=== PATIENT | male | born 1955 | race Caucasian/White ===

== ENCOUNTER 2025-05-24 10:19 | Outpatient (CLI) | payer MEDICARE, SELFPAY ==
--- NOTE | 2025-05-24 10:43 | ECG_ITS ---
Test Date: 2025-05-24 10:47:37 Measurements Intervals [place] Rate: 56 P: 53 DE: 251 QRS: -19 QRSD: 102 T: 5 QT: 401 QTc: 388 Interpretive Statements SINUS BRADYCARDIA WITH FIRST DEGREE AV BLOCK INFERIOR MYOCARDIAL INFARCTION , PROBABLY OLD [40+ ms Q WAVE AND/OR ST/T ABNORMALITY IN II/aVF] No previous ECG available for comparison Electronically Signed On 05-24-2025 12:45:46 CDT by Chucho Williamson M.D.
--- OUTSIDE RECORDS SUMMARY | 2025-05-24 10:49 | XMS_ITS | Continuity of Care Document ---
Author Name [facility] Organization [facility] Care Team Providers Care Card Cutter Helper Name Role Phone [facility] Unavailable Unavailable Problems Combined list of problems from Department of Defense and Veterans Affairs facilities. It does not include entries that were removed or entered in error. Problem Status Onset Date Problem Type Date of Resolution Comments Source Allergic rhinitis Active Condition [facility] Anxiety Active Condition [facility] Benign essential hypertension (SNOMED CT 5806918) Active Condition [facility] Benign hypertension (SNOMED CT 18319870) Active Condition [facility] Carpal tunnel syndrome of right wrist Active Condition [facility] Cervical radiculopathy (SNOMED CT 76108601) Active Condition [facility] Cervicalgia (SNOMED CT 74770243) [facility] Chest pain Active Condition [facility] Chronic low back pain Active Condition [facility] Degeneration of cervical intervertebral disc (SNOMED CT 96486633) Active Condition [facility] Degeneration of lumbar or lumbosacral intervertebral disc (ICD-9-CM 722.52) Active Condition [facility] Essential hypertension (SNOMED CT 56823772) Active Condition Oct 16, 2005 Entered By: HAYDEN MCCARTY Comment: under private care [facility] HTN * (ICD-9-CM 401.9) Active Condition [facility] Hyperlipidemia (SNOMED CT 29643191) Active Condition [facility] Intervertebral disc prolapse (SNOMED CT 78172132) Active Condition [facility] Low Back Pain Active Condition Sep Entered By: HAYDEN MCCARTY Comment: recurrant episodes of pain [facility] Entered By: HAYDEN MCCARTY Comment: this is sc [facility] Neck pain (SNOMED CT 61046570) Active Condition [facility] Nonspecific abnormal results of function study of thyroid (ICD-9-CM 794.5) Active Condition [facility] Obstructive sleep apnea Active Condition [facility] Osteoarthritis of knee (SNOMED CT 768916197) Active Condition [facility] Osteoarthrosis involving the knee (ICD-9-CM 715.98) Active Condition [facility] Pain of left hip joint Active Condition [facility] Paronychia of toe (SNOMED CT 898066009) Active Condition [facility] Vitamin D deficiency Active Condition [facility] Vitamin D Deficiency (ICD-9-CM 268.9) Active Condition [facility] Chest Wall Pain (ICD-9-CM 786.52) Inactive Condition 06/01/2015 [facility] Diagnosis: ICD-10-CM I10 Essential (primary) hypertension Active Diagnosis [facility] Diagnosis: ICD-10-CM Z23 Encounter for immunization Active Diagnosis [facility] Medications Combined list of outpatient medications from Department of Defense and Veterans Affairs facilities.Medications provided include 1) outpatient medications from the last 15 months, and 2) patient-reported medications. Medication Details Route Status Patient Instructions Prescription Expires Prescription Number Last Dispense Date Ordering Provider Order Date Order Qty Source ASCORBIC ACID 500MG/NILA HIPS TAB TAKE TWO TABLETS BY MOUTH DAILY ORAL ACTIVE MARI CHA RT F 2014 [facility] CETIRIZINE HCL 10MG TAB TAKE ONE TABLET BY MOUTH ONCE A DAY FOR ALLERGY SYMPTOMS . ORAL 12/24/2024 [id number] SHANIA ESPANA AMCYNTHIAD T 2023 90 [facility] CHOLECALCIF CHRISTINA (LOW DOSE VIT D) - (OTC) TAB TAKE 5000UNIT S BY MOUTH ONCE A DAY ORAL ACTIVE DENIS ODOM SA 2017 [facility] CHOLECALCIF CHRISTINA 25MCG (1,000UNIT) TAB TAKE TWO TABLETS BY MOUTH DAILY ORAL ACTIVE MARI CHA RT F 2014 [facility] CYCLOBENZAP RINE HCL 10MG TAB TAKE ONE TABLET BY MOUTH PRN ORAL ACTIVE DAVID JOSHI 2013 [facility] DICLOFENAC NA 1% GEL,TOP APPLY 4 GM TO AFFECTED AREA(S) FOUR TIMES A DAY NEEDED FOR PAIN/INF LAMMATIO N; NOT MORE THAN 16 GRAMS DAILY TO ANY LOWER EXTREMIT Y JOINT. NOT MORE THAN 8 GRAMS DAILY TO ANY UPPER EXTREMIT Y JOINT. MAX 32GM/DAY OVER ALL JOINTS. (MEASURE DOSE WITH RULER ATTACHED INSIDE BOX) GERARDO Sidhu 11/30/2024 [id number] 4 SHANIA ESPANA T 2023 100 [facility] FISH OIL 1000MG (500MG DHA/EPA) CAP,ORAL TAKE 1 CAPSULE BY MOUTH TWICE A DAY ORAL ACTIVE Remy BARLOW 2012 [facility] HYDROCHLORO THIAZIDE 12.5MG/NESTOR NOPRIL 10MG TAB TAKE ONE TABLET BY MOUTH DAILY ORAL ACTIVE DAVID JOSHI 2013 [facility] HYDROCHLORO THIAZIDE 12.5MG/NESTOR NOPRIL 10MG TAB TAKE ONE TABLET BY MOUTH EVERY DAY ACTIVE BRIANNE MCGEE 2011 [facility] [place] POTASSIUM 100MG TAB TAKE ONE TABLET BY MOUTH ONCE A DAY TO LOWER BLOOD PRESSURE ORAL ACTIVE 12/22/2025 [id number] SHANIA ESPANA T 2024 90 [facility] [place] POTASSIUM 100MG TAB TAKE ONE TABLET BY MOUTH ONCE A DAY TO LOWER BLOOD PRESSURE ORAL DISCONT INUED 11/30/2024 [id number] 4 SHANIA ESPANA T [address] [place] [address] MAGNESIUM OXIDE 400MG TAB TAKE ONE TABLET BY MOUTH DAILY ORAL ACTIVE MARI CHA RT F 2014 [facility] MULTIVITAMI N W/MINERALS (NO VIT K) TAB TAKE BY MOUTH DAILY ORAL ACTIVE MARI CHA RT F 2012 [facility] Allergies, Adverse Reactions, Alerts Combined list of allergies from Department of Defense and Veterans Affairs facilities. It does not include entries that were removed or entered in error. Substance Category Reaction Severity Reaction type Status Date Reported Comments Source LISINOPRIL Propensity to adverse reactions to drug (finding) Cough MODERATE active 3 [facility] MONOSODIUM GLUTAMATE Propensity to adverse reactions to food (finding) Headache, Sneezing active 2 [facility] MONOSODIUM GLUTAMATE Propensity to adverse reactions to food (finding) Headache active 4 [facility] MONOSODIUM GLUTAMATE Propensity to adverse reactions to food (finding) Headache MODERATE active 3 [facility] Immunizations Combined list of available immunizations from the Department of Defense and Veterans Affairs facilities. Immunization Series Date Given Administered By Site Reaction Lot Number CVX Code Drug Spring Coiler Hand Status Comments Source PNEUMOCOCCAL CONJUGATE PCV20, POLYSACCHARID E [id number] CONJUGATE, ADJUVANT, PF 2023 JAN ESPINOZA LEFT DELTO ID [id number] 216 complet ed [facility] TDAP 2023 JAN ESPINOZA RIGHT DELTO ID [id number] 115 complet ed [facility] ZOSTER RECOMBINANT 2 2020 187 complet ed [facility] ZOSTER RECOMBINANT 1 2020 187 complet ed [facility] INFLUENZA, INJECTABLE, QUADRIVALENT, PRESERVATIVE FREE 2019 150 complet ed [facility] INFLUENZA, INJECTABLE, QUADRIVALENT, PRESERVATIVE FREE 2017 150 complet ed [facility] INFLUENZA, INJECTABLE, QUADRIVALENT, PRESERVATIVE FREE 2016 150 complet ed [facility] INFLUENZA, SEASONAL, INJECTABLE, PRESERVATIVE FREE 2014 140 complet ed [facility] INFLUENZA, UNSPECIFIED FORMULATION 2012 88 complet ed [facility] INFLUENZA, UNSPECIFIED FORMULATION 2011 NONE 88 complet ed left deltoid [facility] TDAP 2011 115 complet ed [facility] DTAP, UNSPECIFIED FORMULATION 2011 107 complet ed remote data [facility] TDAP 2011 115 complet ed [facility] TD(ADULT) UNSPECIFIED FORMULATION 2011 139 complet ed [facility] CEMETER Y TDAP 2011 115 complet ed [facility] C[facility] Y INFLUENZA, UNSPECIFIED FORMULATION 2010 88 complet ed [facility] INFLUENZA, UNSPECIFIED FORMULATION 2009 88 complet ed [facility] INFLUEN[facility], UNSPECIFIED FORMULATION 2006 88 complet ed [facility] TD (ADULT), 2 LF TETANUS TOXOID, PRESERVATIVE FREE, ADSORBED 1 2004 09 complet ed HISTORICA L INFORMATI ON - FROM OTHER REGISTRY, [facility] Results Combined list of recent chemistry, hematology and other laboratory results from Department of Defense and Veterans Affairs, ranging from 15 months to all on record, depending upon the facility. Order Name Results Value Reference Range Date Interpretation Specimen Comments Source COMPREHEN SIVE METABOLIC PANEL CREATININE [MASS/VOLUM E] IN SERUM OR PLASMA 1.14 mg/dL 0.7 - 1.3 01/04 Specimen Type: PLASMA Comment: No hemolysis noted. Ordering Provider: BOYD ESPANA Report Released Date/Time: Dec 17, 2024 04:12 PM Reporting Lab: [facility] [address] [place], [place] [phone] Performing Lab: [facility] [address] [place] [address] COMPREHEN SIVE METABOLIC PANEL UREA NITROGEN [MASS/VOLUM E] IN SERUM OR PLASMA 24.1 mg/dL 9.0 - 25.0 01/04 Specimen Type: PLASMA Comment: No hemolysis noted. Ordering Provider: BOYD ESPANA Report Released Date/Time: Dec 17, 2024 04:12 PM Reporting Lab: [facility] [address] [place] [phone] Performing Lab: [facility] [address] [place] [address] COMPREHEN SIVE METABOLIC PANEL GLUCOSE [MASS/VOLUM E] IN SERUM OR PLASMA 97 mg/dL 72 - 99 01/04 Specimen Type: PLASMA Comment: No hemolysis noted. Ordering Provider: BOYD ESPANA Report Released Date/Time: Dec 17, 2024 04:12 PM Reporting Lab: [facility] [address] [place] [address] Performing Lab: [facility] [address] [place] [address] [facility] COMPREHEN SIVE METABOLIC PANEL SODIUM [MOLES/VOLU ME] IN SERUM OR PLASMA 139 meq/L 136 - 145 01/04 Specimen Type: PLASMA Comment: No hemolysis noted. Ordering Provider: BOYD ESPANA Report Released Date/Time: Dec 17, 2024 04:12 PM Reporting Lab: [facility] [address] [place] [address] Performing Lab: [facility] [address] [place] [address] [facility] COMPREHEN SIVE METABOLIC PANEL POTASSIUM [MOLES/VOLU ME] IN SERUM OR PLASMA 4.4 meq/L 3.5 - 5 01/04 Specimen Type: PLASMA Comment: No hemolysis noted. Ordering Provider: BOYD ESPANA Report Released Date/Time: Dec 17, 2024 04:12 PM Reporting Lab: [facility] [address] [place] [address] Performing Lab: [facility] [address] [place] [address] [facility] COMPREHEN SIVE METABOLIC PANEL CHLORIDE [MOLES/VOLU ME] IN SERUM OR PLASMA 105 meq/L 98 - 107 01/04 Specimen Type: PLASMA Comment: No hemolysis noted. Ordering Provider: BOYD ESPANA Report Released Date/Time: Dec 17, 2024 04:12 PM Reporting Lab: [facility] [address] [place] [place] [address] Performing Lab: [facility] [address] [place] [address] [facility] COMPREHEN SIVE METABOLIC PANEL CARBON DIOXIDE, TOTAL [MOLES/VOLU ME] IN SERUM OR PLASMA 22 meq/L 22 - 31 01/04 Specimen Type: PLASMA Comment: No hemolysis noted. Ordering Provider: BOYD ESPANA Report Released Date/Time: Dec 17, 2024 04:12 PM Reporting Lab: [facility] [address] [facility] [address] Performing Lab: [facility] [address] [place] [phone] [facility] COMPREHEN SIVE METABOLIC PANEL CALCIUM [MASS/VOLUM E] IN SERUM OR PLASMA 9.3 mg/dL 8.4 - 10.4 01/04 Specimen Type: PLASMA Comment: No hemolysis noted. Ordering Provider: BOYD ESPANA Report Released Date/Time: Dec 17, 2024 04:12 PM Reporting Lab: [facility] [address] [place] [phone] Performing Lab: [facility] [address] [place] [phone] [facility] COMPREHEN SIVE METABOLIC PANEL PROTEIN [MASS/VOLUM E] IN SERUM OR PLASMA 7.2 g/dL 6 - 8.6 01/04 Specimen Type: PLASMA Comment: No hemolysis noted. Ordering Provider: BOYD ESPANA Report Released Date/Time: Dec 17, 2024 04:12 PM Reporting Lab: [facility] [address] [facility] [address] Performing Lab: [facility] [address] [place] [phone] [facility] COMPREHEN SIVE METABOLIC PANEL ALBUMIN [MASS/VOLUM E] IN SERUM OR PLASMA 4.2 g/dL 3.4 - 5 01/04 Specimen Type: PLASMA Comment: No hemolysis noted. Ordering Provider: BOYD ESPANA Report Released Date/Time: Dec 17, 2024 04:12 PM Reporting Lab: [facility] [address] [facility] [address] Performing Lab: [facility] [address] [facility] [address] [facility] COMPREHEN SIVE METABOLIC PANEL BILIRUBIN.T OTAL [MASS/VOLUM E] IN SERUM OR PLASMA 0.7 mg/dL 0.2 - 1.2 01/04 Specimen Type: PLASMA Comment: No hemolysis noted. Ordering Provider: BOYD ESPANA Report Released Date/Time: Dec 17, 2024 04:12 PM Reporting Lab: [place] [phone] Performing Lab: [place] [id number] COMPREHEN SIVE METABOLIC PANEL ALKALINE PHOSPHATASE [ENZYMATIC ACTIVITY/VO LUME] IN SERUM OR PLASMA 51 U/L 40 - 150 01/04 Specimen Type: PLASMA Comment: No hemolysis noted. Ordering Provider: BOYD ESPANA Report Released Date/Time: Dec 17, 2024 04:12 PM Reporting Lab: [place] [id number] Performing Lab: [place] [id number] [place] [address] COMPREHEN SIVE METABOLIC PANEL ASPARTATE AMINOTRANSF ERASE [ENZYMATIC ACTIVITY/VO LUME] IN SERUM OR PLASMA 52 U/L 5 - 34 01/04 H Specimen Type: PLASMA Comment: No hemolysis noted. Ordering Provider: BOYD ESPANA Report Released Date/Time: Dec 17, 2024 04:12 PM Reporting Lab: [place] [phone] Performing Lab: [address] [phone] [place] [address] COMPREHEN SIVE METABOLIC PANEL ALANINE AMINOTRANSF ERASE [ENZYMATIC ACTIVITY/VO LUME] IN SERUM OR PLASMA 35 U/L 8 - 40 01/04 Specimen Type: PLASMA Comment: No hemolysis noted. Ordering Provider: BOYD ESPANA Report Released Date/Time: Dec 17, 2024 04:12 PM Reporting Lab: [place] [phone] Performing Lab: [address] [place] [address] [facility] COMPREHEN SIVE METABOLIC PANEL GLOMERULAR FILTRATION RATE/1.73 SQ M.PREDICTED [VOLUME RATE/AREA] IN SERUM, PLASMA OR BLOOD BY CREATININE- BASED FORMULA (CKD-EPI 2020) 70.1 60 01/04 Specimen Type: PLASMA Comment: No hemolysis noted. Ordering Provider: BOYD ESPANA Report Released Date/Time: Dec 17, 2024 04:12 PM Reporting Lab: [facility] [address] [place] [phone] Performing Lab: [address] [address] [facility] HGA1C HEMOGLOBIN A1C/HEMOGLO BIN.TOTAL IN BLOOD 6.1 4.0 - 6.0 01/04 H Specimen Type: BLOOD No comment entered. Ordering Provider: BOYD ESPANA Report Released Date/Time: Dec 17, 2024 04:12 PM Reporting Lab: [facility] [address] [place] [phone] Performing Lab: [address] [address] [facility] LIPID PANEL (STL) CHOLESTEROL [MASS/VOLUM E] IN SERUM OR PLASMA 164 mg/dL 0 - 200 01/04 Specimen Type: PLASMA Comment: No hemolysis noted. Ordering Provider: BOYD ESPANA Report Released Date/Time: Dec 17, 2024 04:12 PM Reporting Lab: [facility] [address] [place] [phone] Performing Lab: [address] [phone] [facility] LIPID PANEL (STL) TRIGLYCERID E [MASS/VOLUM E] IN SERUM OR PLASMA 66 mg/dL 0 - 150 01/04 Specimen Type: PLASMA Comment: No hemolysis noted. Ordering Provider: BOYD ESPANA Report Released Date/Time: Dec 17, 2024 04:12 PM Reporting Lab: [facility] [address] [address] Performing Lab: [facility] [address] [place] [phone] [facility] LIPID PANEL (STL) CHOLESTEROL IN LDL [MASS/VOLUM E] IN SERUM OR PLASMA BY CALCULATION 97 mg/dL 01/04 Specimen Type: PLASMA Comment: No hemolysis noted. Ordering Provider: BOYD ESPANA Report Released Date/Time: Dec 17, 2024 04:12 PM Reporting Lab: [facility] [address] [place] [phone] Performing Lab: [place] [phone] [place] [address] LIPID PANEL (L) CHOLESTEROL IN HDL [MASS/VOLUM E] IN SERUM OR PLASMA 54 mg/dL 40 01/04 Specimen Type: PLASMA Comment: No hemolysis noted. Ordering Provider: BOYD ESPANA Report Released Date/Time: Dec 17, 2024 04:12 PM Reporting Lab: [facility] [address] [place] [phone] Performing Lab: [address] [address] [facility] TSH W/ REFLEX FT4 (STL) THYROTROPIN [UNITS/VOLU ME] IN SERUM OR PLASMA 1.065 u[IU]/ mL 0.47 - 5 01/04 Specimen Type: PLASMA No comment entered. Ordering Provider: BOYD ESPANA Report Released Date/Time: Dec 17, 2024 04:12 PM Reporting Lab: [facility] [address] [place] [phone] Performing Lab: [facility] [address] [place], [place] [phone] [facility] URINALYSI S (STL-PB) COLOR OF URINE Light- Yellow 01/04 Specimen Type: URINE No comment entered. Ordering Provider: BOYD ESPANA Report Released Date/Time: Dec 17, 2024 04:12 PM Reporting Lab: [facility] [address] [place] [phone] Performing Lab: [facility] [address] [place], [place] [phone] [place] [address] URINALYSI S (STL-PB) BILIRUBIN.T OTAL [PRESENCE] IN URINE BY TEST STRIP Negati vemg/d L 01/04 Specimen Type: URINE No comment entered. Ordering Provider: BOYD ESPANA Report Released Date/Time: Dec 17, 2024 04:12 PM Reporting Lab: [address] [address] Performing Lab: [address] [phone] [place] [address] URINALYSI S (STL-PB) PH OF URINE BY TEST STRIP 6.5 5.0 - 8.0 01/04 Specimen Type: URINE No comment entered. Ordering Provider: BOYD ESPANA Report Released Date/Time: Dec 17, 2024 04:12 PM Reporting Lab: [address] [address] Performing Lab: [address] [phone] [place] [address] URINALYSI S (STL-PB) LEUKOCYTES [#/AREA] IN URINE SEDIMENT BY MICROSCOPY HIGH POWER FIELD <1/[HP F] 0 - 5 01/04 Specimen Type: URINE No comment entered. Ordering Provider: BOYD ESPANA Report Released Date/Time: Dec 17, 2024 04:12 PM Reporting Lab: [address] [address] Performing Lab: [address] [address] [facility] URINALYSI S (STL-PB) ERYTHROCYTE S [#/VOLUME] IN URINE SEDIMENT BY MICROSCOPY HIGH POWER FIELD 2 /[HPF] 0 - 5 01/04 Specimen Type: URINE No comment entered. Ordering Provider: BOYD ESPANA Report Released Date/Time: Dec 17, 2024 04:12 PM Reporting Lab: [facility] [address] [place] [phone] Performing Lab: [facility] [address] [place] [phone] [facility] URINALYSI S (STL-PB) APPEARANCE OF URINE Clear 01/04 Specimen Type: URINE No comment entered. Ordering Provider: BOYD ESPANA Report Released Date/Time: Dec 17, 2024 04:12 PM Reporting Lab: [address] [address] Performing Lab: [address] [phone] [place] [address] URINALYSI S (STL-PB) NITRITE [PRESENCE] IN URINE BY TEST STRIP Negati vemg/d L 01/04 Specimen Type: URINE No comment entered. Ordering Provider: BOYD ESPANA Report Released Date/Time: Dec 17, 2024 04:12 PM Reporting Lab: [facility] [address] [place] [phone] Performing Lab: [facility] [address] [place] [phone] [facility] URINALYSI S (STL-PB) GLUCOSE [MASS/VOLUM E] IN URINE BY TEST STRIP Normal mg/dL 01/04 Specimen Type: URINE No comment entered. Ordering Provider: BOYD ESPANA Report Released Date/Time: Dec 17, 2024 04:12 PM Reporting Lab: [facility] [address] [place] [phone] Performing Lab: [facility] [address] [place] [phone] [facility] URINALYSI S (STL-PB) PROTEIN [MASS/VOLUM E] IN URINE BY TEST STRIP 20 mg/dL 01/04 H Specimen Type: URINE No comment entered. Ordering Provider: BOYD ESPANA Report Released Date/Time: Dec 17, 2024 04:12 PM Reporting Lab: [facility] [address] [place] [phone] Performing Lab: [facility] [address] [place] [phone] [facility] URINALYSI S (STL-PB) URN.UROBILI NOGEN Normal mg/dL 01/04 Specimen Type: URINE No comment entered. Ordering Provider: BOYD ESPANA Report Released Date/Time: Dec 17, 2024 04:12 PM Reporting Lab: [facility] [address] [place] [phone] Performing Lab: [facility] [address] [place] [phone] [place] [address] URINALYSI S (STL-PB) HEMOGLOBIN [MASS/VOLUM E] IN URINE BY TEST STRIP Negati vemg/d L 01/04 Specimen Type: URINE No comment entered. Ordering Provider: BOYD ESPANA Report Released Date/Time: Dec 17, 2024 04:12 PM Reporting Lab: [facility] [address] [place] [phone] Performing Lab: [address] [address] [facility] URINALYSI S (STL-PB) KETONES [MASS/VOLUM E] IN URINE BY TEST STRIP Negati vemg/d L 01/04 Specimen Type: URINE No comment entered. Ordering Provider: BOYD ESPANA Report Released Date/Time: Dec 17, 2024 04:12 PM Reporting Lab: [facility] [address] [place] [phone] Performing Lab: [facility] [address] [place] [phone] [facility] URINALYSI S (STL-PB) URN.LEUK.ES T. Negati vemg/d L 01/04 Specimen Type: URINE No comment entered. Ordering Provider: BOYD ESPANA Report Released Date/Time: Dec 17, 2024 04:12 PM Reporting Lab: [facility] [address] [place] [phone] Performing Lab: [address] [phone] [place] [address] URINALYSI S (STL-PB) SPECIFIC GRAVITY OF URINE 1.021 01/04 Specimen Type: URINE No comment entered. Ordering Provider: BOYD ESPANA Report Released Date/Time: Dec 17, 2024 04:12 PM Reporting Lab: [address] [address] Performing Lab: [address] [phone] [place] [address] VITAMIN D, 25-HYDROX Y 25-HYDROXYV ITAMIN D3 [MASS/VOLUM E] IN SERUM OR PLASMA 30.3 ng/mL 30 - 96 01/04 Specimen Type: SERUM No comment entered. Ordering Provider: BOYD ESPANA Report Released Date/Time: Dec 17, 2024 04:12 PM Reporting Lab: [address] [phone] Performing Lab: [address] [address] [facility] BASIC METABOLIC PANEL CREATININE [MASS/VOLUM E] IN SERUM OR PLASMA 1.18 mg/dL 0.7 - 1.3 06/26 Specimen Type: PLASMA Comment: No hemolysis noted. Ordering Provider: BOYD ESPANA Report Released Date/Time: Jun 26, 2024 09:32 AM Reporting Lab: [facility] [address] [place] [phone] Performing Lab: [address] [address] [facility] BASIC METABOLIC PANEL UREA NITROGEN [MASS/VOLUM E] IN SERUM OR PLASMA 18.9 mg/dL 9.0 - 25.0 06/26 Specimen Type: PLASMA Comment: No hemolysis noted. Ordering Provider: BOYD ESPANA Report Released Date/Time: Jun 26, 2024 09:32 AM Reporting Lab: [address] [address] Performing Lab: [phone] [place] [address] BASIC METABOLIC PANEL GLUCOSE [MASS/VOLUM E] IN SERUM OR PLASMA 107 mg/dL 72 - 99 06/26 H Specimen Type: PLASMA Comment: No hemolysis noted. Ordering Provider: BOYD ESPANA Report Released Date/Time: Jun 26, 2024 09:32 AM Reporting Lab: [address] [address] Performing Lab: [address] [phone] [place] [address] BASIC METABOLIC PANEL SODIUM [MOLES/VOLU ME] IN SERUM OR PLASMA 137 meq/L 136 - 145 06/26 Specimen Type: PLASMA Comment: No hemolysis noted. Ordering Provider: BOYD ESPANA Report Released Date/Time: Jun 26, 2024 09:32 AM Reporting Lab: [address] [address] Performing Lab: [address] [address] [facility] BASIC METABOLIC PANEL POTASSIUM [MOLES/VOLU ME] IN SERUM OR PLASMA 4.0 meq/L 3.5 - 5 06/26 Specimen Type: PLASMA Comment: No hemolysis noted. Ordering Provider: BOYD ESPANA Report Released Date/Time: Jun 26, 2024 09:32 AM Reporting Lab: [address] [address] Performing Lab: [address] [address] [facility] BASIC METABOLIC PANEL CHLORIDE [MOLES/VOLU ME] IN SERUM OR PLASMA 106 meq/L 98 - 107 06/26 Specimen Type: PLASMA Comment: No hemolysis noted. Ordering Provider: BOYD ESPANA Report Released Date/Time: Jun 26, 2024 09:32 AM Reporting Lab: [address] [address] Performing Lab: [phone] [place] [address] BASIC METABOLIC PANEL CARBON DIOXIDE, TOTAL [MOLES/VOLU ME] IN SERUM OR PLASMA 22 meq/L 22 - 31 06/26 Specimen Type: PLASMA Comment: No hemolysis noted. Ordering Provider: BOYD ESPANA Report Released Date/Time: Jun 26, 2024 09:32 AM Reporting Lab: [address] [address] Performing Lab: [address] [address] [facility] BASIC METABOLIC PANEL CALCIUM [MASS/VOLUM E] IN SERUM OR PLASMA 9.4 mg/dL 8.4 - 10.4 06/26 Specimen Type: PLASMA Comment: No hemolysis noted. Ordering Provider: BOYD ESPANA Report Released Date/Time: Jun 26, 2024 09:32 AM Reporting Lab: [address] [address] Performing Lab: [address] [address] [facility] BASIC METABOLIC PANEL GLOMERULAR FILTRATION RATE/1.73 SQ M.PREDICTED [VOLUME RATE/AREA] IN SERUM, PLASMA OR BLOOD BY CREATININE- BASED FORMULA (CKD-EPI 2020) 67.6 60 06/26 Specimen Type: PLASMA Comment: No hemolysis noted. Ordering Provider: BOYD ESPANA Report Released Date/Time: Jun 26, 2024 09:32 AM Reporting Lab: [address] [address] Performing Lab: [address] [address] [facility] HGA1C HEMOGLOBIN A1C/HEMOGLO BIN.TOTAL IN BLOOD 6.0 4.0 - 6.0 06/26 Specimen Type: BLOOD No comment entered. Ordering Provider: BOYD ESPANA Report Released Date/Time: Jun 26, 2024 09:31 AM Reporting Lab: [address] [address] Performing Lab: [address] [phone] [place] [address] VITAMIN D, 25-HYDROX Y 25-HYDROXYV ITAMIN D3 [MASS/VOLUM E] IN SERUM OR PLASMA 30.7 ng/mL 30 - 96 06/26 Specimen Type: SERUM No comment entered. Ordering Provider: BOYD ESPANA Report Released Date/Time: Jun 26, 2024 09:31 AM Reporting Lab: [address] [address] Performing Lab: [address] [phone] [place] [address] PROST. SPECIFIC AG.(PB-ST L) PROSTATE SPECIFIC AG [MASS/VOLUM E] IN SERUM OR PLASMA 0.454 ng/mL 0 - 4 11/06 Specimen Type: SERUM Comment: The listed sex of this patient may not be a typical indication for this test. Therefore, reference ranges or interpretiv e criteria listed may not be valid. Clinical correlation suggested. Ordering Provider: BOYD ESPANA Report Released Date/Time: Jun 26, 2023 12:07 PM Reporting Lab: [address] [address] Performing Lab: [place] [id number] Vital Signs Combined list of inpatient and outpatient Vital Signs from Department of Defense and Veterans Affairs, ranging from 12 months to all on record, depending upon the facility. Vital Sign Value Date Comments Source SYSTOLIC BLOOD PRESSURE 138 03/01/20 25 09:56:52 [facility] DIASTOLIC BLOOD PRESSURE 69 025 09:56:52 [facility] SYSTOLIC BLOOD PRESSURE 141 06/26/20 24 08:57:01 [facility] DIASTOLIC BLOOD PRESSURE 82 024 08:57:01 [facility] PULSE OXIMETRY 96 06/26/2024 08:57:01 [facility] WEIGHT 253.6 06/26/2024 08:57:01 [facility] BMI 34 kg/m2 06/26/2024 08:57:01 [facility] PAIN 1 06/26/2024 08:57:01 [facility] TEMPERATURE 97.7 06/26/2024 08:57:01 [facility] PULSE 76 06/26/2024 08:57:01 [facility] RESPIRATION 18 06/26/2024 08:57:01 [facility] Encounters Combined list of: 1) Encounters from Department of Veterans Affairs facilities going backup to the last 18 months, not all [place] inpatient encounters are included; 2) Encounters from the Department of [facility] facilities going backup to 280 months. Location Location Details Encounter Type Encounter Number Reason For Visit Attending Provider ADM Date DC Date Status Disposition Source [facility] Outpatient Encounter [id number] CHERIE WALL 11/22 [facility] OFFICE O/P EST MOD 30 MIN [id number] Diagnos is: ICD-10- CM I10 Essenti al (primar y) hyperte nsion JOVICARLOTA MMAD T 11/25 [facility] Outpatient Encounter [id number] NAHTAN CORNEJO 12[facility]12 [facility] En[facility] [id number] NATHAN CORNEJO 12/23 [facility] EST MAY X REQ PHY/QHP [id number] Diagnos is: ICD-10- CM Z23 Encount er for immuniz GABBY Mcmahan EPH T 04/20 [facility] OFFICE O/P EST MOD 30 MIN [id number] Diagnos is: ICD-10- CM I10 Essenti al (primar y) hyperte SHANAI ArceA MMAD T 06/26 [facility] Outpatient Encounter [id number] NATHAN CORNEJO 07/10 [facility] Outpatient Encounter [id number] NATHAN CORNEJO 07/10 [facility] Outpatient Encounter [id number] CARLOTA ESPANA MMAD T 07/18 [facility] Outpatient Encounter [id number] CHERIE WALL 12/17 [facility] OFFICE O/P EST MOD 30 MIN [id number] Diagnos is: ICD-10- CM I10 Essenti al (primar y) hyperte CARLOTA Arce MMAD T 12/21 [facility] Outpatient Encounter [id number] SHANIA ESPANAA MMAD T 01/05 [facility] Outpatient Encounter [id number] CHERIE WALL L 02/23 [facility] OFFICE O/P EST HI 40 MIN [id number] Diagnos is: ICD-10- CM I10 Essenti al (primar y) hyperte nsCARLOTA Higgins MMAD T 03/01 [facility] Outpatient Encounter [id number] CARLOTA ESPANA MMAD T 03/09 [facility] Social History Combined list of available smoking, tobacco, and other social history from Department of Defense and Veterans Affairs facilities. Social History Type Response Date Comment Sour e Tobacco smoking status NHIS [place]-TOBACCO NEVER USED 06/26/2024 [facility] History of tobacco use [place]-TOBACCO NEVER USED 06/26/2023 [facility] History of tobacco use [place]-TOBACCO NEVER USED 04/17/2022 [facility] History of tobacco use [place]-TOBACCO NEVER USED 01/03/2021 [facility] History of tobacco use [place]-TOBACCO NEVER USED 09/15/2018 [facility] History of tobacco use LIFETIME NON-USER OF TOBACCO 04/12/2017 [facility] History of tobacco use LIFETIME NON-USER OF TOBACCO 06/15/2016 [facility] History of tobacco use LIFETIME NON-USER OF TOBACCO 06/01/2015 [facility] History of tobacco use LIFETIME NON-USER OF TOBACCO 04/10/2014 [facility] History of tobacco use TOBACCO LIFETIME NON USER 09/08/2013 [facility] History of tobacco use LIFETIME NON-USER OF TOBACCO 07/17/2013 [facility] History of tobacco use LIFETIME NON-USER OF TOBACCO 10/09/2012 [facility] History of tobacco use LIFETIME NON-USER OF TOBACCO 02/24/2007 [facility] History of tobacco use LIFETIME NON-TOBACCO USER 10/16/2005 [facility] Plan of Care List of future care activities from Department of Veterans Affairs facilities. Additional future care activities may be listed in the Assessment and Plan section. Date/Time Care Activity Care Activity Detail Facili ty 09/01/2025 AMBULATORY - MEDICINE AMBULATORY - MEDICI NE [facility] Advance Directives List of completed, amended, or rescinded Advance Directives on record at Department of [facility] facilities. An actual copy of the Directive is not included. Date Advance Directive Provider Source 06/15/2016 ADVANCE DIRECTIVE DISCUSSION ERIC [facility]
--- OUTSIDE RECORDS SUMMARY | 2025-05-24 10:49 | XMS_ITS | Clinical Summary ---
Author Organization [facility] Address [address] [place] [address] Care Team Providers Care Production Supervisor Trainee Name Role Phone Mayelin Vital MD Primary Care Provider [phone] Julian Rawls MD Unavailable [phone] Source Comments [facility],non-owned Affiliates and Associated Physician Practices is amultiple site organization consisting of ambulatory clinics and hospital sitesin [place], [place], [place] and [place]. This disclosure is being madepursuant to the Care Everywhere program and may not contain all information available regarding this patient. Last updated 18.[facility] Allergies Active Allergy Reactions Criticality Noted Date Comments Lisinopril Cough Medium 08/15/2015 Monosodium Glutamate Headache Low 10/09/2012 Nsaids Other Low 12/24/2022 Stage 1 CKD Medications * Be aware that medications may not be up to date on this document. Alwaysverify current medications with the patient. cetirizine (ZyrTEC) 10 MG tablet 8 Active diclofenac sodium (VOLTAREN) 1 % gel APPLY 4 GM TO AFFECTED AREA(S) FOUR TIMES A DAY NEEDED FOR PAIN/INFLAMMATION ; NOT MORE THAN 16 GRAMS DAILY TO ANY LOWER EXTREMITY JOINT. NOT MORE THAN 8 GRAMS DAILY TO ANY UPPER EXTREMITY JOINT. MAX 32GM/DAY OVER ALL JOINTS. (MEASURE DOSE WITH RULER ATTACHED INSIDE BOX) 0 Active Motley-3 Fatty Acids (FISH OIL) 1000 MG capsule Take 1 (one) capsule by mouth once daily Active losartan (Cozaar) 100 MG tablet 1 (one) tablet 3 Active vitamin D3 (Cholecalcifer ol) (25 MCG) 1000 UNIT capsule Take 1 (one) capsule by mouth once daily Active acetaminophen (Tylenol) 325 MG tablet Take 2 (two) tablets by mouth every 6 hours as needed for Fever or Pain Maximum allowable Acetaminophen amount = 4 Grams (4000 mg) / 24 hours. Active Turmeric (QC TUMERIC COMPLEX PO) Take 1 Dose by mouth once daily Active Collagen-Vitam in C (Collagen Plus Vitamin C) 740-125 MG Take 1 Dose by mouth once daily Active Active Problems Problem Noted Date Diagnosed Date Hallux rigidus of right foot 06/19/2024 Essential (primary) hypertension 06/09/2024 Encounter for general adult medical examination with abnormal findings 06/09/2024 Seasonal allergies 02/04/2023 Primary hypertension 02/04/2023 Skin lesions 02/04/2023 FABBY (obstructive sleep apnea) 02/04/2023 Chronic low back pain with sciatica 02/04/2023 Painful gait 02/04/2023 DDD (degenerative disc disease), lumbar 02/05/20 Anterolisthesis of lumbar spine 02/04/2023 HLD (hyperlipidemia) 02/04/2023 Actinic keratosis 12/28/2021 Multiple benign melanocytic nevi of upper and lower extremities and trunk 12/28/2021 Gagnon angioma 12/28/2021 Solar lentiginosis 12/28/2021 Family History Medical History Relation Name Comments None Known Brother None Known Father None Known Maternal Aunt None Known Maternal Grandfather None Known Maternal Grandmother None Known Maternal Uncle None Known Mother None Known Other None Known Paternal Aunt None Known Paternal Grandfather None Known Paternal Grandmother None Known Paternal Uncle None Known Sister Asthma Neg Hx CVA Neg Hx Cancer - Breast Neg Hx Cancer - Other Neg Hx Cancer - Skin, Melanoma Neg Hx Cancer - Skin, Non Melanoma Neg Hx Eczema Neg Hx Hemophilia Neg Hx Psoriasis Neg Hx Relation Name Status Comments Brother Father Maternal Aunt Maternal Grandfather Maternal Grandmother Maternal Uncle Mother Other Paternal Aunt Paternal Grandfather Paternal Grandmother Paternal Uncle Sister Social History Tobacco Use Types Packs/Day Years Used Date Smoking Tobacco: Never Smokeless Tobacco: Never Alcohol Use Standard Drinks/Week Comments Yes 1 (1 standard drink = 0.6 oz pur e alcohol) 6/8 drinks a year PHQ-2 Answer Date Recorded Patient Health Questionnaire-2 Score 0 02/14/2024 Sex and Gender Information Value Date Recorded Sex Assigned at Male 06/14/2022 12:44 PM CDT Legal Sex 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9 cm (6') 02/12/2025 9:10 AM CDT Body Mass Index 33.77 02/12/2025 9:10 AM CDT Plan of Treatment Upcoming Encounters Date Type Department Care Team (Late st Contact Info) Description 08/20/2025 10:00 AM CDT Office Visit [facility] [address] [facility] [place] [phone] Zoe Gaona, STREET ENGINEER-TOBACCO CUTTER [address] [phone] 08/26/2025 11:20 AM CDT Office Visit [facility] [address] [phone] Williams Urias MD [address] [phone] Health Maintenance Due Date Last Done Comments COLOGUARD (AGES 45-75) - COL ON CA SCREENING 1955 CT COLONOGRAPHY - COLON CA SCREENING 1955 FIT - COLON CA SCREENING 1955 FLEX SIG - COLON CA SCREENING 1955 LIPID TESTING 1955 HEPATITIS C SCREENING 11/08/1974 DTAP/TDAP/TD VACCINES (1 - Tdap) 1975 PNEUMOCOCCAL VACCINE 50+ (1 of 1 - PCV) 2006 ZOSTER VACCINE (1 of 2) 2006 Respiratory Syncytial Virus (RSV) Vaccine Pt: or over 60 yrs (1 - Risk 60-74 years 1-dose series) 2016 COVID-19 VACCINE ( - 2023-2 5 season) 2024 DEPRESSION SCREENING 10/28/2024 01/23/2024, 02/16/2022 MEDICARE AWV CALENDAR YEAR 2024 INFLUENZA VACCINE (#1) 2025 07/29/2023 SCREENING FOR DIABETES 08/03/2025 08/03/2022 COLON MONITORING 06/15/2032 06/15/2022, 06/15/2022 COLONOSCOPY - COLON CA SCREENING 06/15/2032 06/15/2022, 06/15/2022 Colorectal Cancer Screening 06/15/2032 HEPATITIS B VACCINE Aged Out No longe r eligible based on patient's age to complete this topic HIB VACCINE Aged Out No longer eligi ble based on patient's age to complete this topic HPV VACCINE Aged Out No longer eligi ble based on patient's age to complete this topic MENINGOCOCCAL (Group B) VACCINE SHARED DECISION-MAKING Aged Out No longer eligible based on patient's age to complete this topic MENINGOCOCCAL GROUPS A/C/Y/W VACCINE Aged Out No longer eligible b ased on patient's age to complete this topic Procedures Procedure Name Priority Date/Time Associated Diagnosis Comments COMPREHENSIVE METABOLIC PANEL Routine 08/03/2022 9:50 AM CDT Primary hypertension ENDOSCOPY, COLON, SCREENING Routine 06/15/2022 10:03 AM CDT from Last 3 Months or Most Recently Relevant to Health Maintenance Results * (ABNORMAL) COMPREHENSIVE METABOLIC PANEL (08/03/2022 9:50 AM [facility]) BUN 26 7 - 26 mg/dL 08/03/2022 12:20 PM [facility] Creatinine 1.22(H) 0.71 - 1.16 mg/dL 08/03/2022 12:20 PM [facility] Sodium 139 136 - 145 mmol/L 08/03/2022 12:20 PM [facility] Potassium 4.2 3.5 - 4.5 mmol/L 08/03/2022 12:20 PM [facility] Chloride 104 98 - 107 mmol/L 08/03/2022 12:20 PM [facility] CO2 25 22 - 29 mmol/L 08/03/2022 12:20 PM [facility] Glucose 96 70 - 115 mg/dL 08/03/2022 12:20 PM [facility] Calcium 9.7 8.4 - 10.2 mg/dL 08/03/2022 12:20 PM [facility] Protein Total 7.3 6.0 - 8.3 g/dL 08/03/2022 12:20 PM [facility] Albumin 4.2 3.4 - 5.0 g/dL 08/03/2022 12:20 PM [facility] Bilirubin Total 0.4 0.2 - 1.2 mg/dL 08/03/2022 12:20 PM [facility] Alkaline Phosphatase 57 40 - 150 U/L 08/03/2022 12:20 PM [facility] ALT 20 5 - 55 U/L 08/03/2022 12:20 PM [facility] AST 20 5 - 34 U/L 08/03/2022 12:20 PM [facility] Anion Gap 14 8 - 18 08/03/2022 12:20 PM [facility] BUN/Creatinine Ratio 21 7 - 23 08/03/2022 12:20 PM [facility] Osmolality Calculated 293 270 - 300 mOsm/kg 08/03/2022 12:20 PM [facility] Albumin/Globulin Ratio 1.4 1.1 - 2.3 08/03/2022 12:20 PM CDT [facility] eGFR by CKD-EPI 66(L) >=90 mL/min/1.7 3 m2 08/03/2022 12:20 PM CDT [facility] Blood BLOOD SPECIMEN / Unknown Lab Venipuncture / Unknown 08/03/2022 9:50 AM CDT 08/03/2022 11:47 [address] ENGINEER-TOBACCO CUTTER LAB - CHEMISTRY ORDERAB LES Final Result [facility] [address] [place] [address], [facility] [phone] * ENDOSCOPY, COLON, SCREENING (06/15/2022 10:03 AM CDT) Report Endoscopy POC Endoscopy Department Report _ Patient Name: Colleen Kumar Procedure Date: 06/15/2022 10:03 AM Date of : 1955 Classification: Outpatient Gender: Male Ethnicity: Not or Race: White _ Providers: Farhan Christine (Fellow) Referring MD: Procedure: Colonoscopy Indications: Screening for colorectal malignant neoplasm Medications: Monitored Anesthesia Care Patient Profile: This is a 66 year old male. Description of Procedure: After I obtained informed consent, the scope was passed under direct vision. Throughout the procedure, the patient's blood pressure, pulse, and oxygen saturations were monitored continuously. The Colonoscope was introduced through the anus and advanced to the cecum, identified by appendiceal orifice and ileocecal valve. The colonoscopy was performed without difficulty. The patient tolerated the procedure well. The quality of the bowel preparation was evaluated using the BBPS (Mammoth Bowel Preparation Scale) with scores of: Right Colon = 3, Transverse Colon = 3 and Left Colon = 3 (entire mucosa seen well with no residual staining, small fragments of stool or opaque liquid). The total BBPS score equals 9. Scope insertion time was 11 minutes. Scope withdrawal time was 20 minutes. Findings: The perianal and digital rectal examinations were normal. A 2 mm polyp was found in the descending colon. The polyp was sessile. The polyp was removed with a cold snare. Resection and retrieval were complete. The exam was otherwise normal throughout the examined colon. Estimated Blood Loss: Estimated blood loss was minimal. Complications: No immediate complications. Impression: - One 2 mm polyp in the descending colon, removed with a cold snare. Resected and retrieved. - The exam was otherwise normal. Recommendation: - Patient has a contact number available for emergencies. The signs and symptoms of potential delayed complications were discussed with the patient. Return to normal activities tomorrow. Written discharge instructions were provided to the patient. - Resume previous diet. - Repeat colonoscopy in 10 years for surveillance. Attending Participation: I was present and participated during the entire procedure, including non-chisholm portions. Procedure Code(s): --- Professional --- 97813, Colonoscopy, flexible; with removal of tumor(s), polyp(s), or other lesion(s) by snare technique Diagnosis Code(s): --- Professional --- Z12.11, Encounter for screening for malignant neoplasm of colon K63.5, Polyp of colon CPT copyright 2019 [employer]. All rights reserved. The codes documented in this report are preliminary and upon cold meat cook review may be revised to meet current compliance requirements. Dylon Fox, 06/15/2022 10:45:19 AM Note Initiated On: 06/15/2022 10:03 AM Number of Addenda: [id number] [place] [address] PROVATION 06/15/2022 10:0 3 AM CDT Dylon Fox MD GI PROCEDURE ORDERABLES Edited R esult - Final [facility] PROVATION from Last 3 Months or Most Recently Relevant to Health Maintenance Insurance [facility] MANAGED MEDICARE ADV Care Teams Production Supervisor Trainee Relationship Specialty Start Date End Date Mayelin Vital MD [address] [address] PCP - General 11/05/21 Julian Rawls MD [address] [address] 11/05/21
== END 2025-05-24 10:20 | disposition home or self-care (01) ==
PROVIDERS: Visit Provider Podiatrist Foot & Ankle Surgery
DX: Z01.818 Encounter for other preprocedural examination (principal); R00.1 Bradycardia, unspecified; I44.0 Atrioventricular block, first degree
CPT/HCPCS: 93005

== ENCOUNTER → 2025-06-07 16:12 | Outpatient (REF) | payer MEDICARE, SELFPAY ==
--- NOTE | 2025-06-07 16:12 | S_PTH ---
PATIENT: Neal Kumar LOC: [facility] U#:[id number] AGE/SX: 69/M ROOM: RE06/07/[address]: Arlen Harris MD : 1955 BED: DIS: SPEC #: [id number] RECD: 06/08/25 07:15 STATUS: GRIS REKip #: [id number] CHEMO: 06/07/25 16:[address]: Arlen Harris DEPT: [facility] Surgical RECD BY: Leonardo Curry ENTERED: 06/08/25 07:16 SP TYPE: Surgical OTHR DR: UNKNOWN,DOCTOR Tissues: A - Mass Procedures: Hematoxylin and Eosin Stain Gross and Microscopic Level 3
--- OUTSIDE RECORDS SUMMARY | 2025-06-07 16:14 | XMS_ITS | Continuity of Care Document ---
Author Name [facility] Organization [facility] Care Team Providers Care Slot Floor Attendant Name Role Phone [facility] Unavailable Unavailable Problems Combined list of problems from Department of Defense and Veterans Affairs facilities. It does not include entries that were removed or entered in error. Problem Status Onset Date Problem Type Date of Resolution Comments Source Allergic rhinitis Active Condition [facility] Anxiety Active Condition [facility] Benign essential hypertension (SNOMED CT 6075695) Active Condition [facility] Benign hypertension (SNOMED CT 81946807) Active Condition [facility] Carpal tunnel syndrome of right wrist Active Condition [facility] Cervical radiculopathy (SNOMED CT 23134485) Active Condition [facility] Cervicalgia (SNOMED CT 98405808) [facility] Chest pain Active Condition [facility] Chronic low back pain Active Condition [facility] Degeneration of cervical intervertebral disc (SNOMED CT 36545933) Active Condition [facility] Degeneration of lumbar or lumbosacral intervertebral disc (ICD-9-CM 722.52) Active Condition [facility] Essential hypertension (SNOMED CT 23287717) Active Condition Oct 16, 2005 Entered By: HAYDEN MCCARTY Comment: under private care [facility] HTN * (ICD-9-CM 401.9) Active Condition [facility] Hyperlipidemia (SNOMED CT 99601157) Active Condition [facility] Intervertebral disc prolapse (SNOMED CT 80297612) Active Condition [facility] Low Back Pain Active Condition Sep Entered By: HAYDEN MCCARTY Comment: recurrant episodes [facility] Entered By: HAYDEN MCCARTY Comment: this is sc [facility] Neck pain (SNOMED CT 35605926) Active Condition [facility] Nonspecific abnormal results of function study of thyroid (ICD-9-CM 794.5) Active Condition [facility] Obstructive sleep apnea Active Condition [facility] Osteoarthritis of knee (SNOMED CT 803753949) Active Condition [facility] Osteoarthrosis involving the knee (ICD-9-CM 715.98) Active Condition [facility] Pain of left hip joint Active Condition [facility] Paronychia of toe (SNOMED CT 494617895) Active Condition [facility] Vitamin D deficiency Active Condition [facility] Vitamin D Deficiency (ICD-9-CM 268.9) Active Condition [facility] Chest Wall Pain (ICD-9-CM 786.52) Inactive Condition 06/01/2015 [facility] Diagnosis: ICD-10-CM I10 Essential (primary) hypertension Active Diagnosis [facility] Diagnosis: ICD-10-CM Z23 Encounter for immunization Active Diagnosis [facility] Medications Combined list of outpatient medications from [...] ORAL ACTIVE MARI CHA RT F 2014 [facility] CETIRIZINE HCL 10MG TAB TAKE ONE TABLET BY MOUTH ONCE A DAY FOR ALLERGY SYMPTOMS . ORAL 12/24/2024 [id number] SHANIA ESPANA AMCYNTHIAD T 2023 90 [facility] CHOLECALCIF CHRISTINA (LOW DOSE VIT D) - (OTC) TAB TAKE 5000UNIT S BY MOUTH ONCE A DAY ORAL ACTIVE DENIS ODOM SA [address] [facility] CHOLECALCIF CHRISTINA 25MCG (1,000UNIT) TAB TAKE TWO TABLETS BY MOUTH DAILY ORAL ACTIVE MARI CHA RT F 2014 [facility] CYCLOBENZAP RINE HCL 10MG TAB TAKE ONE TABLET BY MOUTH PRN ORAL ACTIVE DAVID JOSHI 2013 [facility] DICLOFENAC NA 1% GEL,TOP APPLY 4 GM TO AFFECTED AREA(S) FOUR TIMES A DAY NEEDED FOR PAIN/INF LAMMATIO N; NOT MORE THAN 16 GRAMS DAILY TO ANY LOWER EXTREMIT Y JOINT. NOT MORE THAN 8 GRAMS DAILY TO ANY UPPER EXTREMIT Y JOINT. MAX 32GM/DAY OVER ALL JOINTS. (MEASURE DOSE WITH RULER ATTACHED INSIDE BOX) GERARDO Sidhu 11/30/2024 [id number] 4 SHANIA ESPANA T 2023 100 [facility] FISH OIL 1000MG (500MG DHA/EPA) CAP,ORAL TAKE 1 CAPSULE BY MOUTH TWICE A DAY ORAL ACTIVE Remy BARLOW 2012 [facility] HYDROCHLORO THIAZIDE 12.5MG/NESTOR NOPRIL 10MG TAB TAKE ONE TABLET BY MOUTH DAILY ORAL ACTIVE DAVID JOSHI 2013 [facility] HYDROCHLORO THIAZIDE 12.5MG/NESTOR NOPRIL 10MG TAB TAKE ONE TABLET BY MOUTH EVERY DAY ACTIVE BRIANNE MCGEE 2011 [facility] [place] POTASSIUM 100MG TAB TAKE ONE TABLET BY MOUTH ONCE A DAY TO LOWER BLOOD PRESSURE ORAL ACTIVE 12/22/2025 [id number] 5 SHANIA ESPANA T 2024 90 [facility] [place] POTASSIUM 100MG TAB TAKE ONE TABLET BY MOUTH ONCE A DAY TO LOWER BLOOD PRESSURE ORAL DISCONT INUED 11/30/2024 [id number] 4 SHANIA ESPANA T [address] [place] [address] MAGNESIUM OXIDE 400MG TAB TAKE ONE TABLET BY MOUTH DAILY ORAL ACTIVE MARI CHA RT F 2014 [facility] MULTIVITAMI N W/MINERALS (NO VIT K) TAB TAKE BY MOUTH DAILY ORAL ACTIVE MARI CHA RT F 2012 [facility] Allergies, Adverse Reactions, Alerts Combined list of allergies from Department of Defense and Veterans Affairs facilities. It does not include entries that were removed or entered in error. Substance Category Reaction Severity Reaction type Status Date Reported Comments Source LISINOPRIL Propensity to adverse reactions to drug (finding) Cough MODERATE active 3 [facility] MONOSODIUM GLUTAMATE Propensity to adverse reactions to food (finding) Headache, Sneezing active 2 [facility] MONOSODIUM GLUTAMATE Propensity to adverse reactions to food (finding) Headache active 4 [facility] MONOSODIUM GLUTAMATE Propensity to adverse reactions to food (finding) Headache MODERATE active 3 [facility] Immunizations Combined list of available immunizations from the Department of Defense and Veterans Affairs facilities. Immunization Series Date Given Administered By Site Reaction Lot Number CVX Code Drug Lot Porter Status Comments Source PNEUMOCOCCAL CONJUGATE PCV20, POLYSACCHARID E [id number] CONJUGATE, ADJUVANT, PF 2023 JAN ESPINOZA LEFT DELTO ID [id number] 216 complet ed [facility] TDAP 2023 JAN ESPINOZA RIGHT DELTO ID [id number] 115 complet ed [facility] ZOSTER RECOMBINANT 2 2020 187 complet ed [facility] ZOSTER RECOMBINANT 1 2020 187 complet ed [facility] INFLUENZA, INJECTABLE, QUADRIVALENT, PRESERVATIVE FREE 2019 150 complet ed [facility] INFLUENZA, INJECTABLE, QUADRIVALENT, PRESERVATIVE FREE 2017 150 complet ed [facility] INFLUENZA, INJECTABLE, QUADRIVALENT, PRESERVATIVE FREE 2016 150 complet ed [facility] INFLUENZA, SEASONAL, INJECTABLE, PRESERVATIVE FREE 2014 140 complet ed [facility] INFLUENZA, UNSPECIFIED FORMULATION 2012 88 complet ed [facility] INFLUENZA, UNSPECIFIED FORMULATION 2011 NONE 88 complet ed left deltoid [facility] TDAP 2011 115 complet ed [facility] DTAP, UNSPECIFIED FORMULATION 2011 107 complet ed remote data DELAWAR E TDAP 2011 115 complet ed [facility] TD(ADULT) UNSPECIFIED FORMULATION 2011 139 complet ed [facility] CEMETER Y TDAP 2011 115 complet ed JAM[facility] CEMETER Y INFLUENZA, UNSPECIFIED FORMULATION 2010 88 complet ed [facility] INFLUENZA, UNSPECIFIED FORMULATION 2009 88 complet ed [facility] INFLUENZA, UNSPECIFIED FORMULATION 2006 88 complet ed [facility] TD (ADULT), 2 LF TETANUS TOXOID, PRESERVATIVE FREE, ADSORBED 1 2004 09 complet ed HISTORICA L INFORMATI ON - FROM OTHER REGISTRY, [facility] Results Combined list of recent [...] Dec 17, 2024 04:12 PM Reporting Lab: [facility] [address] [place], [place] [phone] Performing Lab: [facility] [address] [place] [address] COMPREHEN SIVE METABOLIC PANEL UREA NITROGEN [MASS/VOLUM E] IN SERUM OR PLASMA 24.1 mg/dL 9.0 - 25.0 01/04 Specimen Type: PLASMA Comment: No hemolysis noted. Ordering Provider: BOYD ESPANA Report Released Date/Time: Dec 17, 2024 04:12 PM Reporting Lab: [facility] [address] [place] [phone] Performing Lab: [facility] [address] [place] [address] COMPREHEN SIVE METABOLIC PANEL GLUCOSE [MASS/VOLUM E] IN SERUM OR PLASMA 97 mg/dL 72 - 99 01/04 Specimen Type: PLASMA Comment: No hemolysis noted. Ordering Provider: BOYD ESPANA Report Released Date/Time: Dec 17, 2024 04:12 PM Reporting Lab: [facility] [address] [facility] [phone] Performing Lab: [facility] [address] [facility] [phone] [facility] COMPREHEN SIVE METABOLIC PANEL SODIUM [MOLES/VOLU ME] IN SERUM OR PLASMA 139 meq/L 136 - 145 01/04 Specimen Type: PLASMA Comment: No hemolysis noted. Ordering Provider: BOYD ESPANA Report Released Date/Time: Dec 17, 2024 04:12 PM Reporting Lab: [facility] [address] [facility] [phone] Performing Lab: [facility] [address] [facility] [phone] [facility] COMPREHEN SIVE METABOLIC PANEL POTASSIUM [MOLES/VOLU ME] IN SERUM OR PLASMA 4.4 meq/L 3.5 - 5 01/04 Specimen Type: PLASMA Comment: No hemolysis noted. Ordering Provider: BOYD ESPANA Report Released Date/Time: Dec 17, 2024 04:12 PM Reporting Lab: [facility] [address] [facility] [phone] Performing Lab: [facility] [address] [facility] [phone] [facility] COMPREHEN SIVE METABOLIC PANEL CHLORIDE [MOLES/VOLU ME] IN SERUM OR PLASMA 105 meq/L 98 - 107 01/04 Specimen Type: PLASMA Comment: No hemolysis noted. Ordering Provider: BOYD ESPANA Report Released Date/Time: Dec 17, 2024 04:12 PM Reporting Lab: [facility] [address] [facility] [phone] Performing Lab: [facility] [address] [facility] [phone] [facility] COMPREHEN SIVE METABOLIC PANEL CARBON DIOXIDE, TOTAL [MOLES/VOLU ME] IN SERUM OR PLASMA 22 meq/L 22 - 31 01/04 Specimen Type: PLASMA Comment: No hemolysis noted. Ordering Provider: BOYD ESPANA Report Released Date/Time: Dec 17, 2024 04:12 PM Reporting Lab: [facility] [address] [facility] [phone] Performing Lab: [facility] [address] [place] [phone] [facility] COMPREHEN SIVE METABOLIC PANEL CALCIUM [MASS/VOLUM E] IN SERUM OR PLASMA 9.3 mg/dL 8.4 - 10.4 01/04 Specimen Type: PLASMA Comment: No hemolysis noted. Ordering Provider: BOYD ESPANA Report Released Date/Time: Dec 17, 2024 04:12 PM Reporting Lab: [facility] [address] [place] [phone] Performing Lab: [facility] [address] [place] [phone] [facility] COMPREHEN SIVE METABOLIC PANEL PROTEIN [MASS/VOLUM E] IN SERUM OR PLASMA 7.2 g/dL 6 - 8.6 01/04 Specimen Type: PLASMA Comment: No hemolysis noted. Ordering Provider: BOYD ESPANA Report Released Date/Time: Dec 17, 2024 04:12 PM Reporting Lab: [facility] [address] [facility] [phone] Performing Lab: [facility] [address] [place] [phone] [facility] COMPREHEN SIVE METABOLIC PANEL ALBUMIN [MASS/VOLUM E] IN SERUM OR PLASMA 4.2 g/dL 3.4 - 5 01/04 Specimen Type: PLASMA Comment: No hemolysis noted. Ordering Provider: BOYD ESPANA Report Released Date/Time: Dec 17, 2024 04:12 PM Reporting Lab: [facility] [address] [facility] [phone] Performing Lab: [facility] [address] [facility] [phone] [facility] COMPREHEN SIVE METABOLIC PANEL BILIRUBIN.T OTAL [MASS/VOLUM E] IN SERUM OR PLASMA 0.7 mg/dL 0.2 - 1.2 01/04 Specimen Type: PLASMA Comment: No hemolysis noted. Ordering Provider: BOYD ESPANA Report Released Date/Time: Dec 17, 2024 04:12 PM Reporting Lab: [place] [phone] Performing Lab: [place] [phone] COMPREHEN SIVE METABOLIC PANEL ALKALINE PHOSPHATASE [ENZYMATIC ACTIVITY/VO LUME] IN SERUM OR PLASMA 51 U/L 40 - 150 01/04 Specimen Type: PLASMA Comment: No hemolysis noted. Ordering Provider: BOYD ESPANA Report Released Date/Time: Dec 17, 2024 04:12 PM Reporting Lab: [place] [address] Performing Lab: [place] [phone] [place] [address] COMPREHEN SIVE METABOLIC PANEL ASPARTATE AMINOTRANSF ERASE [ENZYMATIC ACTIVITY/VO LUME] IN SERUM OR PLASMA 52 U/L 5 - 34 01/04 H Specimen Type: PLASMA Comment: No hemolysis noted. Ordering Provider: BOYD ESPANA Report Released Date/Time: Dec 17, 2024 04:12 PM Reporting Lab: [place] [phone] Performing Lab: [address] [phone] [place] [address] COMPREHEN SIVE METABOLIC PANEL ALANINE AMINOTRANSF ERASE [ENZYMATIC ACTIVITY/VO LUME] IN SERUM OR PLASMA 35 U/L 8 - 40 01/04 Specimen Type: PLASMA Comment: No hemolysis noted. Ordering Provider: BOYD ESPANA Report Released Date/Time: Dec 17, 2024 04:12 PM Reporting Lab: [place] [phone] Performing Lab: [address] [place] [address] [facility] COMPREHEN SIVE METABOLIC PANEL GLOMERULAR FILTRATION RATE/1.73 SQ M.PREDICTED [VOLUME RATE/AREA] IN SERUM, PLASMA OR BLOOD BY CREATININE- BASED FORMULA (CKD-EPI 2020) 70.1 60 01/04 Specimen Type: PLASMA Comment: No hemolysis noted. Ordering Provider: BOYD ESPANA Report Released Date/Time: Dec 17, 2024 04:12 PM Reporting Lab: [facility] [address] [place] [phone] Performing Lab: [address] [address] [facility] HGA1C HEMOGLOBIN A1C/HEMOGLO BIN.TOTAL IN BLOOD 6.1 4.0 - 6.0 01/04 H Specimen Type: BLOOD No comment entered. Ordering Provider: BOYD ESPANA Report Released Date/Time: Dec 17, 2024 04:12 PM Reporting Lab: [facility] [address] [place] [phone] Performing Lab: [address] [address] [facility] LIPID PANEL (STL) CHOLESTEROL [MASS/VOLUM E] IN SERUM OR PLASMA 164 mg/dL 0 - 200 01/04 Specimen Type: PLASMA Comment: No hemolysis noted. Ordering Provider: BOYD ESPANA Report Released Date/Time: Dec 17, 2024 04:12 PM Reporting Lab: [facility] [address] [place] [phone] Performing Lab: [address] [address] [facility] LIPID PANEL (STL) TRIGLYCERID E [MASS/VOLUM E] IN SERUM OR PLASMA 66 mg/dL 0 - 150 01/04 Specimen Type: PLASMA Comment: No hemolysis noted. Ordering Provider: BOYD ESPANA Report Released Date/Time: Dec 17, 2024 04:12 PM Reporting Lab: [facility] [address] [facility] [phone] Performing Lab: [facility] [address] [place] [phone] [facility] LIPID PANEL (STL) CHOLESTEROL IN LDL [MASS/VOLUM E] IN SERUM OR PLASMA BY CALCULATION 97 mg/dL 01/04 Specimen Type: PLASMA Comment: No hemolysis noted. Ordering Provider: BOYD ESPANA Report Released Date/Time: Dec 17, 2024 04:12 PM Reporting Lab: [facility] [address] [place] [phone] Performing Lab: [place] [phone] [place] [address] LIPID PANEL (L) CHOLESTEROL IN HDL [MASS/VOLUM E] IN SERUM OR PLASMA 54 mg/dL 40 01/04 Specimen Type: PLASMA Comment: No hemolysis noted. Ordering Provider: BOYD ESPANA Report Released Date/Time: Dec 17, 2024 04:12 PM Reporting Lab: [facility] [address] [place] [phone] Performing Lab: [address] [address] [facility] TSH W/ REFLEX FT4 (STL) THYROTROPIN [UNITS/VOLU ME] IN SERUM OR PLASMA 1.065 u[IU]/ mL 0.47 - 5 01/04 Specimen Type: PLASMA No comment entered. Ordering Provider: BOYD ESPANA Report Released Date/Time: Dec 17, 2024 04:12 PM Reporting Lab: [facility] [address] [place] [phone] Performing Lab: [facility] [address] [place], [place] [phone] [facility] URINALYSI S (STL-PB) COLOR OF URINE Light- Yellow 01/04 Specimen Type: URINE No comment entered. Ordering Provider: BOYD ESPANA Report Released Date/Time: Dec 17, 2024 04:12 PM Reporting Lab: [facility] [address] [place] [phone] Performing Lab: [facility] [address] [place], [place] [phone] [place] [address] URINALYSI S (STL-PB) BILIRUBIN.T OTAL [PRESENCE] IN URINE BY TEST STRIP Negati vemg/d L 01/04 Specimen Type: URINE No comment entered. Ordering Provider: BOYD ESPANA Report Released Date/Time: Dec 17, 2024 04:12 PM Reporting Lab: [address] [address] Performing Lab: [address] [phone] [place] [address] URINALYSI S (STL-PB) PH OF URINE BY TEST STRIP 6.5 5.0 - 8.0 01/04 Specimen Type: URINE No comment entered. Ordering Provider: BOYD ESPANA Report Released Date/Time: Dec 17, 2024 04:12 PM Reporting Lab: [address] [phone] Performing Lab: [address] [phone] [place] [address] URINALYSI S (STL-PB) LEUKOCYTES [#/AREA] IN URINE SEDIMENT BY MICROSCOPY HIGH POWER FIELD <1/[HP F] 0 - 5 01/04 Specimen Type: URINE No comment entered. Ordering Provider: BOYD ESPANA Report Released Date/Time: Dec 17, 2024 04:12 PM Reporting Lab: [address] [address] Performing Lab: [address] [address] [facility] URINALYSI S (STL-PB) ERYTHROCYTE S [#/VOLUME] IN URINE SEDIMENT BY MICROSCOPY HIGH POWER FIELD 2 /[HPF] 0 - 5 01/04 Specimen Type: URINE No comment entered. Ordering Provider: BOYD ESPANA Report Released Date/Time: Dec 17, 2024 04:12 PM Reporting Lab: [facility] [address] [place] [phone] Performing Lab: [facility] [address] [place] [phone] [facility] URINALYSI S (STL-PB) APPEARANCE OF URINE Clear 01/04 Specimen Type: URINE No comment entered. Ordering Provider: BOYD ESPANA Report Released Date/Time: Dec 17, 2024 04:12 PM Reporting Lab: [address] [address] Performing Lab: [address] [phone] [place] [address] URINALYSI S (STL-PB) NITRITE [PRESENCE] IN URINE BY TEST STRIP Negati vemg/d L 01/04 Specimen Type: URINE No comment entered. Ordering Provider: BOYD ESPANA Report Released Date/Time: Dec 17, 2024 04:12 PM Reporting Lab: [facility] [address] [place] [phone] Performing Lab: [facility] [address] [place] [phone] [facility] URINALYSI S (STL-PB) GLUCOSE [MASS/VOLUM E] IN URINE BY TEST STRIP Normal mg/dL 01/04 Specimen Type: URINE No comment entered. Ordering Provider: BOYD ESPANA Report Released Date/Time: Dec 17, 2024 04:12 PM Reporting Lab: [facility] [address] [place] [phone] Performing Lab: [facility] [address] [place] [phone] [facility] URINALYSI S (STL-PB) PROTEIN [MASS/VOLUM E] IN URINE BY TEST STRIP 20 mg/dL 01/04 H Specimen Type: URINE No comment entered. Ordering Provider: BOYD ESPANA Report Released Date/Time: Dec 17, 2024 04:12 PM Reporting Lab: [facility] [address] [place] [phone] Performing Lab: [facility] [address] [place] [phone] [facility] URINALYSI S (STL-PB) URN.UROBILI NOGEN Normal mg/dL 01/04 Specimen Type: URINE No comment entered. Ordering Provider: BOYD ESPANA Report Released Date/Time: Dec 17, 2024 04:12 PM Reporting Lab: [facility] [address] [place] [phone] Performing Lab: [facility] [address] [place] [phone] [place] [address] URINALYSI S (STL-PB) HEMOGLOBIN [MASS/VOLUM E] IN URINE BY TEST STRIP Negati vemg/d L 01/04 Specimen Type: URINE No comment entered. Ordering Provider: BOYD ESPANA Report Released Date/Time: Dec 17, 2024 04:12 PM Reporting Lab: [facility] [address] [place] [phone] Performing Lab: [address] [phone] [facility] URINALYSI S (STL-PB) KETONES [MASS/VOLUM E] IN URINE BY TEST STRIP Negati vemg/d L 01/04 Specimen Type: URINE No comment entered. Ordering Provider: BOYD ESPANA Report Released Date/Time: Dec 17, 2024 04:12 PM Reporting Lab: [facility] [address] [place] [phone] Performing Lab: [facility] [address] [place] [phone] [facility] URINALYSI S (STL-PB) [email or web address] T. Negati vemg/d L 01/04 Specimen Type: URINE No comment entered. Ordering Provider: BOYD ESPANA Report Released Date/Time: Dec 17, 2024 04:12 PM Reporting Lab: [facility] [address] [place] [phone] Performing Lab: [address] [id number] [place] [address] URINALYSI S (STL-PB) SPECIFIC GRAVITY OF URINE 1.021 01/04 Specimen Type: URINE No comment entered. Ordering Provider: BOYD ESPANA Report Released Date/Time: Dec 17, 2024 04:12 PM Reporting Lab: [address] [phone] Performing Lab: [address] [phone] [place] [address] VITAMIN D, 25-HYDROX Y 25-HYDROXYV ITAMIN D3 [MASS/VOLUM E] IN SERUM OR PLASMA 30.3 ng/mL 30 - 96 01/04 Specimen Type: SERUM No comment entered. Ordering Provider: BOYD ESPANA Report Released Date/Time: Dec 17, 2024 04:12 PM Reporting Lab: [address] [phone] Performing Lab: [address] [phone] [facility] BASIC METABOLIC PANEL CREATININE [MASS/VOLUM E] IN SERUM OR PLASMA 1.18 mg/dL 0.7 - 1.3 06/26 Specimen Type: PLASMA Comment: No hemolysis noted. Ordering Provider: BOYD ESPANA Report Released Date/Time: Jun 26, 2024 09:32 AM Reporting Lab: [facility] [address] [place] [address] Performing Lab: [address] [address] [facility] BASIC METABOLIC PANEL UREA NITROGEN [MASS/VOLUM E] IN SERUM OR PLASMA 18.9 mg/dL 9.0 - 25.0 06/26 Specimen Type: PLASMA Comment: No hemolysis noted. Ordering Provider: BOYD ESPANA Report Released Date/Time: Jun 26, 2024 09:32 AM Reporting Lab: [address] [address] Performing Lab: [address] [phone] [place] [address] BASIC METABOLIC PANEL GLUCOSE [MASS/VOLUM E] IN SERUM OR PLASMA 107 mg/dL 72 - 99 06/26 H Specimen Type: PLASMA Comment: No hemolysis noted. Ordering Provider: BOYD ESPANA Report Released Date/Time: Jun 26, 2024 09:32 AM Reporting Lab: [address] [address] Performing Lab: [address] [phone] [place] [address] BASIC METABOLIC PANEL SODIUM [MOLES/VOLU ME] IN SERUM OR PLASMA 137 meq/L 136 - 145 06/26 Specimen Type: PLASMA Comment: No hemolysis noted. Ordering Provider: BOYD ESPANA Report Released Date/Time: Jun 26, 2024 09:32 AM Reporting Lab: [address] [address] Performing Lab: [address] [address] [facility] BASIC METABOLIC PANEL POTASSIUM [MOLES/VOLU ME] IN SERUM OR PLASMA 4.0 meq/L 3.5 - 5 06/26 Specimen Type: PLASMA Comment: No hemolysis noted. Ordering Provider: BOYD ESPANA Report Released Date/Time: Jun 26, 2024 09:32 AM Reporting Lab: [address] [address] Performing Lab: [address] [address] [facility] BASIC METABOLIC PANEL CHLORIDE [MOLES/VOLU ME] IN SERUM OR PLASMA 106 meq/L 98 - 107 06/26 Specimen Type: PLASMA Comment: No hemolysis noted. Ordering Provider: BOYD ESPANA Report Released Date/Time: Jun 26, 2024 09:32 AM Reporting Lab: [address] [address] Performing Lab: [address] [phone] [place] [address] BASIC METABOLIC PANEL CARBON DIOXIDE, TOTAL [MOLES/VOLU ME] IN SERUM OR PLASMA 22 meq/L 22 - 31 06/26 Specimen Type: PLASMA Comment: No hemolysis noted. Ordering Provider: BOYD ESPANA Report Released Date/Time: Jun 26, 2024 09:32 AM Reporting Lab: [address] [address] Performing Lab: [address] [address] [facility] BASIC METABOLIC PANEL CALCIUM [MASS/VOLUM E] IN SERUM OR PLASMA 9.4 mg/dL 8.4 - 10.4 06/26 Specimen Type: PLASMA Comment: No hemolysis noted. Ordering Provider: BOYD ESPANA Report Released Date/Time: Jun 26, 2024 09:32 AM Reporting Lab: [address] [address] Performing Lab: [address] [address] [facility] BASIC METABOLIC PANEL GLOMERULAR FILTRATION RATE/1.73 SQ M.PREDICTED [VOLUME RATE/AREA] IN SERUM, PLASMA OR BLOOD BY CREATININE- BASED FORMULA (CKD-EPI 2020) 67.6 60 06/26 Specimen Type: PLASMA Comment: No hemolysis noted. Ordering Provider: BOYD ESPANA Report Released Date/Time: Jun 26, 2024 09:32 AM Reporting Lab: [address] [address] Performing Lab: [address] [address] [facility] HGA1C HEMOGLOBIN A1C/HEMOGLO BIN.TOTAL IN BLOOD 6.0 4.0 - 6.0 06/26 Specimen Type: BLOOD No comment entered. Ordering Provider: BOYD ESPANA Report Released Date/Time: Jun 26, 2024 09:31 AM Reporting Lab: [address] [address] Performing Lab: [address] [phone] [place] [address] VITAMIN D, 25-HYDROX Y 25-HYDROXYV ITAMIN D3 [MASS/VOLUM E] IN SERUM OR PLASMA 30.7 ng/mL 30 - 96 06/26 Specimen Type: SERUM No comment entered. Ordering Provider: BOYD ESPANA Report Released Date/Time: Jun 26, 2024 09:31 AM Reporting Lab: [address] [address] Performing Lab: [address] [phone] [place] [address] PROST. SPECIFIC AG.(PB-ST L) PROSTATE SPECIFIC AG [...] Jun 26, 2023 12:07 PM Reporting Lab: [address] [address] Performing Lab: [place] [id number] Vital Signs Combined list of inpatient and outpatient Vital Signs from Department of Defense and Veterans Affairs, ranging from 12 months to all on record, depending upon the facility. Vital Sign Value Date Comments Source SYSTOLIC BLOOD PRESSURE 138 03/01/20 25 09:56:52 [facility] DIASTOLIC BLOOD PRESSURE 69 025 09:56:52 [facility] SYSTOLIC BLOOD PRESSURE 141 06/26/20 24 08:57:01 [facility] DIASTOLIC BLOOD PRESSURE 82 024 08:57:01 [facility] PULSE OXIMETRY 96 06/26/2024 08:57:01 [facility] WEIGHT 253.6 06/26/2024 08:57:01 [facility] BMI 34 kg/m2 06/26/2024 08:57:01 [facility] PAIN 1 06/26/2024 08:57:01 [facility] TEMPERATURE 97.7 06/26/2024 08:57:01 [facility] PULSE 76 06/26/2024 08:57:01 [facility] RESPIRATION 18 06/26/2024 08:57:01 [facility] Encounters Combined list of: 1) Encounters from Department of Veterans Affairs facilities going backup to the last 18 months, not all [place] inpatient encounters are included; 2) Encounters from the Department of [facility] facilities going backup to 280 months. Location Location Details Encounter Type Encounter Number Reason For Visit Attending Provider ADM Date DC Date Status Disposition Source [facility] Outpatient Encounter [id number] CHERIE WALL 11/22 [facility] OFFICE O/P EST MOD 30 MIN [id number] Diagnos is: ICD-10- CM I10 Essenti al (primar y) hyperte nsion JOVICARLOTA MMAD T 11/25 [facility] Outpatient Encounter [id number] NATHAN CORNEJO 12/12 [facility] Encounter [id number] NATHAN CORNEJO 12/23 [facility] MAY X REQ PHY/QHP [id number] Diagnos is: ICD-10- CM Z23 Encount er for immuniz GABBY Mcmahan EPH T 04/20 [facility] OFFICE O/P EST MOD 30 MIN [id number] Diagnos is: ICD-10- CM I10 Essenti al (primar y) hyperte SHANIA ArceA MMAD T 06/26 [facility] Outpatient Encounter [id number] NATHAN CORNEJO 07/10 [facility] Outpatient Encounter [id number] NATHAN CORNEJO 07/10 [facility] Outpatient Encounter [id number] CARLOTA ESPANA MMAD T 07/18 [facility] Outpatient Encounter [id number] CHERIE WALL 12/17 [facility] OFFICE O/P EST MOD 30 MIN [id number] Diagnos is: ICD-10- CM I10 Essenti al (primar y) hyperte CARLOTA Arce MMAD T 12/21 [facility] Outpatient Encounter [id number] SHANIA ESPANAA MMAD T 01/05 [facility] Outpatient Encounter [id number] CHERIE WALL L 02/23 [facility] OFFICE O/P EST HI 40 MIN [id number] Diagnos is: ICD-10- CM I10 Essenti al (primar y) hyperte nsCARLOTA Higgins MMAD T 03/01 [facility] Outpatient Encounter [id number] CARLOTA ESPANA MMAD T 03/09 [facility] Social History Combined list of available smoking, tobacco, and other social history from Department of Defense and Veterans Affairs facilities. Social History Type Response Date Comment Sour e Tobacco smoking status NHIS NC-TOBACCO NEVER USED 06/26/2024 [facility] History of tobacco use NC-TOBACCO NEVER USED 06/26/2023 [facility] History of tobacco use NC-TOBACCO NEVER USED 04/17/2022 [facility] History of tobacco use NC-TOBACCO NEVER USED 01/03/2021 [facility] History of tobacco use NC-TOBACCO NEVER USED 09/15/[address] [facility] History of tobacco use LIFETIME NON-USER OF TOBACCO 04/12/2017 [facility] History of tobacco use LIFETIME NON-USER OF TOBACCO 06/15/2016 [facility] History of tobacco use LIFETIME NON-USER OF TOBACCO 06/01/2015 [facility] History of tobacco use LIFETIME NON-USER OF TOBACCO 04/10/2014 [facility] History of tobacco use TOBACCO LIFETIME NON USER 09/08/2013 [facility] History of tobacco use LIFETIME NON-USER OF TOBACCO 07/17/2013 [facility] History of tobacco use LIFETIME NON-USER OF TOBACCO 10/09/2012 [facility] History of tobacco use LIFETIME NON-USER OF TOBACCO 02/24/2007 [facility] History of tobacco use LIFETIME NON-TOBACCO USER 10/16/2005 [facility] Plan of Care List of future care activities from Department of Veterans Affairs facilities. Additional future care activities may be listed in the Assessment and Plan section. Date/Time Care Activity Care Activity Detail Facili ty 09/01/2025 AMBULATORY - MEDICINE AMBULATORY - MEDICI NE [facility] Advance Directives List of completed, amended, or rescinded Advance Directives on record at Department of [facility] facilities. An actual copy of the Directive is not included. Date Advance Directive Provider Source 06/15/2016 ADVANCE DIRECTIVE DISCUSSION ERIC OCONNELL [facility]
== END ==
LOC: ANHLAB 16:12
PROVIDERS: Visit Provider Plastic Surgery
DX: D17.0 Benign lipomatous neoplasm of skin and subcutaneous tissue of head, face and neck (principal)
CPT/HCPCS: 88304

== ENCOUNTER 2025-08-01 09:04 | Emergency (ER) | payer MEDICARE, SELFPAY ==
[2025-08-01] VITALS (15 sets, daily range): BP systolic 125–164; BP diastolic 75–87; PULSE 63–85; RESP 15–23; TEMP 36.4–37.1; O2SAT 91–100
--- NOTE | ~2025-08-01 | CT_ITS ---
CTA CHEST CLINICAL HISTORY: R chest pain, pleuritic, s/p foot surgery 3wk ago . COMPARISON: None TECHNIQUE: Helical CTA performed from thoracic inlet to upper abdomen IV contrast information not listed in PACS Coronal, sagittal reformats. Multiplanar MIPS CT images acquired with automatic exposure control for dose reduction DLP: 640 mGy-cm FINDINGS: Pulmonary arteries: Extensive bilateral PE all lobar segments. Thoracic Aorta: No dissection or aneurysm. Heart/pericardium: Unremarkable. RV/LV ratio: 1.0. Lungs/Pleura: Mild mosaic attenuation. Tracheobronchial tree: Patent. Nodes: No enlarged nodes. Bones: No acute bony abnormality. Soft tissues: Unremarkable. Visualized upper abdomen: Hepatomegaly, with steatosis. IMPRESSION: 1. Diffuse bilateral PE. Large clot volume. 2. Probable right heart strain. Reviewed, dictated and finalized at location R.
--- NOTE | 2025-08-01 09:06 | ECG_ITS ---
Test Date: 2025-08-01 09:13:21 Measurements Intervals [place] Rate: 60 P: 45 NC: 265 QRS: -28 QRSD: 93 T: 23 QT: 313 QTc: 315 Interpretive Statements SINUS RHYTHM WITH FIRST DEGREE AV BLOCK INFERIOR INFARCT, AGE INDETERMINATE BORDERLINE ST-T WAVE ABNORMALITY- LAT/HIGH LAT LEADS BASELINE ARTIFACT- I, II, III, AVR, AVL, AVF, V1-V6 ABNORMAL ECG Compared to ECG 05/24/2025 10:47:37 NO SIGNIFICANT CHANGE Electronically Signed On 08-01-2025 10:28:09 CDT by Manolo Huang D.O.
--- NOTE | 2025-08-01 09:15 | ECG_ITS ---
Test Date: 2025-08-01 09:23:08 Measurements Intervals [place] Rate: 63 P: 45 [place]: 264 QRS: -10 QRSD: 102 T: 29 QT: 411 QTc: 422 Interpretive Statements SINUS RHYTHM WITH FIRST DEGREE AV BLOCK DELAYED PRECORDIAL R/S TRANSITION CONSIDER INFERIOR INFARCT, AGE INDETERMINATE BASELINE ARTIFACT- I, II, III, AVR, AVL, AVF, V1, V4-V6 ABNORMAL ECG Compared to ECG 08/01/2025 09:13:21 NO SIGNIFICANT CHANGE Electronically Signed On 08-01-2025 10:28:52 CDT by Manolo Huang D.O.
[2025-08-01 09:26] LABS: Hematocrit 45.8 % (42.0-52.0); Hemoglobin 15.1 g/dL (14.0-18.0); Immature Granulocyte Percent A 0.6 % (0-0.5); Lymphocytes Absolute Auto 2.46 K/mm3 (0.9-3.2); Mean Corpuscular HGB Conc 33.0 g/dl (32-36); Mean Corpuscular Hemoglobin 30.0 pg (26-34); Mean Corpuscular Volume 90.9 fl (80-100); Nucleated Red Blood Cells Absolute Auto 0.000 K/mm3 (0.0-0.012); Nucleated Red Blood Cells Perc 0.0 % (0.0-0.2); Platelet Count Result 268 k/mm3 (150-375); Red Blood Count 5.04 M/mm3 (4.6-6.20); White Blood Count 10.2 K/mm3 (4.5-10.0)
--- OUTSIDE RECORDS SUMMARY | 2025-08-01 09:35 | XMS_ITS | Clinical Summary ---
Author Organization [facility] Address [address] [place] [address] Care Team Providers Care [employer]ounter [employer] Name Role Phone Mayelin Vital MD Primary Care Provider [phone] Julian Rawls MD Unavailable [phone] Source Comments [facility],non-owned Affiliates and Associated Physician Practices is amultiple site organization consisting of ambulatory clinics and hospital sitesin [place], [place], [place] and [place]. This disclosure is being madepursuant to the Care Everywhere program and may not contain all information available regarding this patient. 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 Encounters Date Type Department Care Team Description 06/24/2025 Travel 06/23/2025 Telephone [facility] - Centralized Scheduling [address] [place] [phone] Zoe Gaona, [employer] MAKER-TRANSPORTATION SOLUTIONS MANAGER Reschedule Appointment from Last 3 Months Family History Medical History Relation Name Comments [...] PM CDT Legal 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 [place] [phone] Williams Urias MD [address] [place] [address] Health Maintenance Due Date Last Done Comments [...] - Risk 60-74 years 1-dose series) 2016 DEPRESSION SCREENING 10/28/2024 01/23/2024, 02/16/2022 MEDICARE AWV CALENDAR YEAR 2024 COVID-19 VACCINE (1 - 2023-2 5 season) 2025 INFLUENZA VACCINE (#1) 2025 07/29/2023 SCREENING FOR [...] (ABNORMAL) COMPREHENSIVE METABOLIC PANEL (08/03/2022 9:50 AM CDT) BUN 26 7 - 26 mg/dL 08/03/2022 12:20 PM [facility] Creatinine 1.22(H) 0.71 - 1.16 mg/dL 08/03/2022 12:20 PM [facility] Sodium 139 136 - 145 mmol/L 08/03/2022 12:20 PM [facility] Potassium 4.2 3.5 - 4.5 mmol/L 08/03/2022 12:20 PM [facility] Chloride 104 98 - 107 mmol/L 08/03/2022 12:20 PM [facility] CO2 25 22 - 29 mmol/L 08/03/2022 12:20 PM [facility] Glucose 96 70 - 115 mg/dL 08/03/2022 12:20 PM [facility] Calcium 9.7 8.4 - 10.2 mg/dL 08/03/2022 12:20 PM [facility] Protein Total 7.3 6.0 - 8.3 g/dL 08/03/2022 12:20 PM [facility] Albumin 4.2 3.4 - 5.0 g/dL 08/03/2022 12:20 PM [facility] Bilirubin Total 0.4 0.2 - 1.2 mg/dL 08/03/2022 12:20 PM [facility] Alkaline Phosphatase 57 40 - 150 U/L 08/03/2022 12:20 PM [facility] ALT 20 5 - 55 U/L 08/03/2022 12:20 PM [facility] AST 20 5 - 34 U/L 08/03/2022 12:20 PM [facility] Anion Gap 14 8 - 18 08/03/2022 12:20 PM [facility] BUN/Creatinine Ratio 21 7 - 23 08/03/2022 12:20 PM CDT [facility] Osmolality Calculated 293 270 - 300 mOsm/kg 08/03/2022 12:20 PM CDT [facility] Albumin/Globulin Ratio 1.4 1.1 - 2.3 08/03/2022 12:20 PM CDT [facility] eGFR by CKD-EPI 66(L) >=90 mL/min/1.7 3 m2 08/03/2022 12:20 PM CDT [facility] Blood BLOOD SPECIMEN / Unknown Lab Venipuncture / Unknown 08/03/2022 9:50 AM CDT 08/03/2022 11:47 AM CDT Zoe Gaona [employer] MAKER-TRANSPORTATION SOLUTIONS MANAGER LAB - CHEMISTRY ORDERAB LES Final Result [facility] [address] [place] [address], [facility] [phone] * ENDOSCOPY, COLON, SCREENING (06/15/2022 10:03 AM [...] bowel preparation was evaluated using the BBPS ([place] Bowel Preparation Scale) with scores of: Right [...] non-chisholm portions. Procedure Code(s): --- Professional --- 68033, Colonoscopy, flexible; with removal of tumor(s), polyp(s), or other lesion(s) by snare technique Diagnosis Code(s): --- Professional --- Z12.11, Encounter for screening for malignant neoplasm of colon K63.5, Polyp of colon CPT copyright 2019 [employer]. All rights reserved. The codes documented in this report are preliminary and upon municipal bond trader review may be revised to meet current compliance requirements. Dylon Fox, 06/15/2022 10:45:19 AM Note Initiated On: 06/15/2022 10:03 AM Number of Addenda: 0 [facility] [address] [place] [address] [facility] [employer] 06/15/2022 10:0 3 AM CDT Dylon Fox MD GI PROCEDURE ORDERABLES Edited R esult - Final [facility] [employer] from Last 3 Months or Most Recently Relevant to Health Maintenance Insurance MANAGED MEDICARE ADV [facility] MANAGED MEDICARE ADV SELF PAY NO INSURANCE Member Subscriber Plan / Payer (Ef fective for All Dates) Name:Colleen Kumar Member ID:Not on file Relation to Subscriber:Not on file Name:COLLEEN KUMAR Subscriber ID:Not on file (Home) Address: [address] [place] [address] Payer ID:Not on file Group ID:Not on file Type:Self Pay Address: [place], [place] Care Teams Mounter [employer] Relationship Specialty Start Date End Date Mayelin Vital MD [address] [address] PCP - General 11/05/21 Julian Rawls MD [address] [address] 11/05/21
[2025-08-01 09:36] LABS: INR 1.0; Prothrombin Time 12.8 Seconds (11.1-14.7)
[2025-08-01 09:37] LABS: Partial Thromboplastin Time 25.3 Seconds (22.3-36.8)
[2025-08-01 09:43] LABS: Alanine Aminotransferase 38 U/L (6-50); Albumin Level 4.6 g/dL (3.5-5.1); Alkaline Phosphatase 75 U/L (38-126); Anion Gap 8 mmol/L (4-12); Aspartate Amino Transferase 32 U/L (17-59); Bilirubin,Total 0.9 mg/dL (0.2-1.3); Blood Urea Nitrogen 21 mg/dL (9-20); Calcium 9.8 mg/dL (8.4-10.2); Carbon Dioxide 27 mmol/L (22-30); Chloride 101 mmol/L (98-107); Estimated CRCL calculation 68 ml/min; Estimated Glomerular Filt Rate 60; Glucose 103 mg/dL (65-110); Lipase 139 U/L (23-300); Potassium 4.3 mmol/L (3.4-5.0); Sodium 136 mmol/L (137-145); Total Protein 8.3 g/dL (6.3-8.2)
[2025-08-01 09:49] LABS: Troponin I < 0.012 ng/mL (0.000-0.034)
--- NOTE | 2025-08-01 09:52 | ED.CHESTPAIN ---
HPI - Chest Pain General Chief Complaint: Chest Pain Stated Complaint: right sided chest pain Time Seen by Provider: 08/01/25 09:12 History of Present Illness HPI narrative: Patient presenting sharp pain to his right chest that started on today, worse with deep breaths, he had a recent foot surgery 3 weeks ago, has been using a cane and using his right arm more than usual, he did also lifts something heavy recently, he is also concern for possible blood clot. No history of clots in the past Related Data Home Medications ?Medication ?Instructions ?Recorded ?Confirmed ?Last Taken ?Type losartan 100 mg tablet 100 mg PO DAILY 05/24/25 Unknown History Allergies Allergy/AdvReac Type Severity Reaction Status Date / Time lisinopril AdvReac Intermediate Cough Verified 08/01/25 09:38 NSAIDS (Non-Steroidal AdvReac Unknown Verified 08/01/25 09:38 Anti-Inflamma Review of Systems Review of Systems: All systems reviewed & are unremarkable except as noted in HPI and below PMFSH Past Medical History Medical History CKD (chronic kidney disease) FABBY (obstructive sleep apnea) Hypertension Family History Family History Father Cancer Mother Skin cancer Ovarian cancer Social History Social History (Updated 06/21/25 @ 15:19 by Sarahy Alexandra) Social History: Caffeine-none Smoking status: Never smoker Alcohol intake: current Alcohol use details: occasionally Substance use: never Substance use type: does not use Living arrangements: with family Gender identity (if verbalized by the patient): Male Exam Narrative: EXAMINATION OF ORGAN SYSTEMS/BODY AREAS: Constitutional: Vital signs per nursing GENERAL:[No acute distress, non-toxic appearing.] HEAD: Normal with no signs of head trauma. EYES: EOMI, conjunctiva normal ENT: Hearing grossly intact LUNGS: Nonlabored breathing. Clear to auscultation bilaterally HEART: [Regular rate and rhythm] ABD: [Soft], [nontender to palpation] EXT: Normal range of motion SKIN: [No rashes or lesions.] NEURO: [Alert and oriented x 3. No gross focal sensory or strength deficits.] PSYCH: Normal affect Course Vital Signs Vital signs: Vital Signs Temperature 97.5 F L 08/01/25 09:25 Pulse Rate 63 08/01/25 09:25 Respiratory Rate 15 08/01/25 09:25 Blood Pressure 154/81 H 08/01/25 09:25 Pulse Oximetry 100 08/01/25 09:25 Oxygen Delivery Room Air 08/01/25 09:25 Temperature 97.5 F L 08/01/25 09:25 Pulse Rate 65 08/01/25 12:04 Respiratory Rate 17 08/01/25 12:04 Blood Pressure 125/77 08/01/25 12:04 Pulse Oximetry 100 08/01/25 12:04 Oxygen Delivery Room Air 08/01/25 09:35 MDM - Chest Pain MDM Narrative Medical decision making narrative: ED COURSE AND MEDICAL DECISION MAKIN-year-old male presenting with chest pain. EKG done in triage negative for acute ischemic changes. Cardiac workup is initiated. EKG: Performed in triage and interpreted by me. Initial EKG with a lot of artifact, and was reperformed. Normal sinus rhythm with first-degree AV block. Rate 63. Normal axis. WA normal. QRS duration normal. QTc normal. No pathologic Q waves. No ST segment elevation or depression to suggest acute ischemia. No RV strain pattern. HEART score is 2 with no acute ischemic changes on EKG and negative troponin making ACS unlikely. Given his concern for PE with recent surgery, I will obtain CT PE. CT PE shows bilateral PE with right heart strain. I have started [facility]. D[facility] Lab Data 08/01/25 09:20 08/01/25 09:20 Labs: Lab Results 08/01/25 08/01/25 Range/Units 09:20 12:04 WBC 10.2 H (4.5-10.0) K/mm3 RBC 5.04 (4.6-6.20) M/mm3 Hgb 15.1 (14.0-18.0) g/dL Hct 45.8 (42.0-52.0) % MCV 90.9 (80-100) fl MCH 30.0 (26-34) pg MCHC 33.0 (32-36) g/dl RDW 13.1 (11.5-14.5) % Plt Count 268 (150-375) k/mm3 MPV 9.6 (7.4-10.4) fl Immature Gran % (Auto) 0.6 H (0-0.5) % Neut % (Auto) 65.1 (45.5-73.1) % Lymph % (Auto) 24.2 (18.3-44.2) % [place] % (Auto) 8.0 (2.6-8.5) % Eos % (Auto) 1.6 (0-4.4) % Baso % (Auto) 0.5 (0.2-1.2) % Lymph # (Auto) 2.46 (0.9-3.2) K/mm3 [place] # (Auto) 0.8 H (0.1-0.6) K/mm3 Eos # (Auto) 0.2 (0-0.3) K/mm3 Baso # (Auto) 0.1 (0.0-0.1) K/mm3 Abs Immat Gran (auto) 0.06 H (0.00-0.031) K/mm3 Absolute Neuts (auto) 6.6 (1.3-6.7) K/mm3 Absolute Nucleated RBC 0.000 (0.0-0.012) K/mm3 Nucleated RBC % 0.0 (0.0-0.2) % PT 12.8 (11.1-14.7) Seconds INR 1.0 APTT 25.3 (22.3-36.8) Seconds Sodium 136 L (137-145) mmol/L Potassium 4.3 (3.4-5.0) mmol/L Chloride 101 (98-107) mmol/L Carbon Dioxide 27 (22-30) mmol/L Anion Gap 8 (4-12) mmol/L BUN 21 H (9-20) mg/dL Creatinine 1.21 (0.7-1.3) mg/dL Estim Creat Clear Calc 68 ml/min Estimated GFR 60 (59 - ) Glucose 103 (65-110) mg/dL Calcium 9.8 (8.4-10.2) mg/dL Total Bilirubin 0.9 (0.2-1.3) mg/dL AST 32 (17-59) U/L ALT 38 (6-50) U/L Alkaline Phosphatase 75 (38-126) U/L Troponin I < 0.012 Pending (0.000-0.034) ng/mL Total Protein 8.3 H (6.3-8.2) g/dL Albumin 4.6 (3.5-5.1) g/dL Lipase 139 (23-300) U/L Critical Care Time Critical Care Time Critical Care Time: Yes Total Critical Care Time: 31 Discharge Plan Discharge Clinical Impression: Pulmonary embolism Patient Disposition: Acute Care Hospital Condition: Serious Patient Language: [place] Prescriptions: No Action losartan 100 mg tablet 100 mg PO DAILY Follow-up/Referrals: PHYSICIAN NOT ON STAFF,NONSTAFF [Primary Care Provider]
--- NOTE | 2025-08-01 11:55 | ECG_ITS ---
Test Date: 2025-08-01 12:00:52 Measurements Intervals [place] Rate: 64 P: 42 [place]: 253 QRS: -25 QRSD: 91 T: 30 QT: 392 QTc: 406 Interpretive Statements SINUS RHYTHM WITH FIRST DEGREE AV BLOCK CONSIDER ANTERIOR INFARCT, AGE INDETERMINATE BASELINE ARTIFACT- I, II, III, AVR, V4-V6 ABNORMAL ECG Compared to ECG 08/01/2025 09:23:08 NO SIGNIFICANT CHANGE Electronically Signed On 08-01-2025 13:56:22 CDT by Manolo Huang D.O.
[2025-08-01] MEDS: HEPARIN SOD/D5W 100 UNITS/ML 25,000 UNITS/250 ML BAG 15 UNITS IV CONT (12:22)
[2025-08-01 12:38] LABS: Troponin I < 0.012 ng/mL (0.000-0.034)
--- NOTE | 2025-08-01 14:58 | ECG_ITS ---
Test Date: 2025-08-01 15:21:53 Measurements Intervals [place] Rate: 69 P: 32 WV: 237 QRS: -24 QRSD: 93 T: 29 QT: 376 QTc: 405 Interpretive Statements SINUS RHYTHM WITH FIRST DEGREE AV BLOCK VOLTAGE CRITERIA FOR LVH CONSIDER ANTERIOR INFARCT, AGE INDETERMINATE CONSIDER INFERIOR INFARCT, AGE INDETERMINATE BASELINE ARTIFACT- I, II, III, AVR, AVL, AVF, V2, V4-V6 ABNORMAL ECG Compared to ECG 08/01/2025 12:00:52 NO SIGNIFICANT CHANGE Electronically Signed On 08-01-2025 19:35:48 CDT by Manolo Huang D.O.
[2025-08-01 16:07] LABS: Troponin I < 0.012 ng/mL (0.000-0.034)
[2025-08-01 18:50] LABS: INR 1.0; Prothrombin Time 13.3 Seconds (11.1-14.7)
[2025-08-01 18:52] LABS: Partial Thromboplastin Time 71.4 Seconds (22.3-36.8)
== END 2025-08-01 19:16 | disposition short-term general hospital (02) ==
PROVIDERS: Emergency Provider Emergency Medicine
DX: T81.718A Complication of other artery following a procedure, not elsewhere classified, initial encounter (principal); I26.99 Other pulmonary embolism without acute cor pulmonale; I12.9 Hypertensive chronic kidney disease with stage 1 through stage 4 chronic kidney disease, or unspecified chronic kidney disease; N18.9 Chronic kidney disease, unspecified; G47.33 Obstructive sleep apnea (adult) (pediatric); I44.0 Atrioventricular block, first degree; R94.31 Abnormal electrocardiogram [ECG] [EKG]; Y83.8 Other surgical procedures as the cause of abnormal reaction of the patient, or of later complication, without mention of misadventure at the time of the procedure; Z79.899 Other long term (current) drug therapy
CPT/HCPCS: 36415; 71275; 80053; 83690; 84484; 85025; 85610; 85730; 93005; 96374; 99291; J1644; Q9967

== ENCOUNTER 2025-08-20 14:36 | Emergency (ER) | payer MEDICARE, SELFPAY ==
--- NOTE | ~2025-08-20 | XR_ITS ---
EXAMINATION: XR chest 2V, 08/20/2025 15:25 CDT HISTORY: dry cough x2 weeks COMPARISON: No comparisons available. Technique: 2 views obtained. Findings: The lungs are clear, no effusion. No pneumothorax. Heart is normal size. Mediastinal and hilar contours are within normal limits. Bony thorax no acute abnormality. Impression: No acute cardiopulmonary abnormality. Reviewed, dictated and finalized at location P. Impression: No acute cardiopulmonary abnormality.
--- OUTSIDE RECORDS SUMMARY | 2025-08-20 14:38 | XMS_ITS | Clinical Summary ---
Author Organization [facility] mascotsecret Address [address] [place] [address] Care Team Providers Care Recreation Facility Attendant Name Role Phone Julian Rawls MD Unavailable [phone] Zoe Gaona APRN-[facility] Primary Care Provider Source Comments [facility],non-owned Affiliates and Associated Physician Practices is amultiple site organization consisting of ambulatory clinics and hospital sitesin [place], [place] and [place]. This disclosure is being madepursuant to the Care Everywhere program and may not contain all information available regarding this patient. Last updated 18.[facility] Allergies Active Allergy Reactions Criticality Noted Date Comments Lisinopril Cough Medium 08/15/2015 Monosodium Glutamate Headache Low 10/09/2012 Nsaids Other Low 12/24/2022 Stage 1 CKD Medications * Be aware that medications may not be up to date on this document. Alwaysverify current medications with the patient. cetirizine (ZyrTEC) 10 MG tablet Take 1 (one) tablet by mouth once daily as needed for Allergies 01/09/20 18 Active diclofenac sodium (VOLTAREN) 1 % gel APPLY 4 GM TO AFFECTED AREA(S) FOUR TIMES A DAY NEEDED FOR PAIN/INFLAMMATION ; NOT MORE THAN 16 GRAMS DAILY TO ANY LOWER EXTREMITY JOINT. NOT MORE THAN 8 GRAMS DAILY TO ANY UPPER EXTREMITY JOINT. MAX 32GM/DAY OVER ALL JOINTS. (MEASURE DOSE WITH RULER ATTACHED INSIDE BOX) 06/08/20 20 Active Sanger-3 Fatty Acids (FISH OIL) 1000 MG capsule Take 1 (one) capsule by mouth once daily Active losartan (Cozaar) 100 MG tablet Take 1 (one) tablet by mouth once daily 12/18/19 Active vitamin D3 (Cholecalciferol ) (25 MCG) 1000 UNIT capsule Take 1 (one) capsule by mouth once daily Active acetaminophen (Tylenol) 325 MG tablet Take 2 (two) tablets by mouth every 6 hours as needed for Fever or Pain Maximum allowable Acetaminophen amount = 4 Grams (4000 mg) / 24 hours. Active Turmeric (QC TUMERIC COMPLEX PO) Take 1 Dose by mouth 2 times daily Active Collagen-Vitamin C (Collagen Plus Vitamin C) 740-125 MG Take 1 Dose by mouth once daily Active sildenafil (Revatio) 20 MG tablet TAKE 1-5 TABLET BY MOUTH DAILY, NEEDED 06/16/20 Active apixaban (Eliquis) 5 MG tablet Take 2 (two) tablets by mouth 2 times daily for 6 days, THEN 1 (one) tablet 2 times daily thereafter 192 tablet 5 1:05 PM CDT 08/03/20 25 026 Active Respiratory Syncytial Virus Vaccine, Recomb., Adjuvanted, Adult (Arexvy; 60+) 120 MCG/0.5ML SUSR (RSV)Indications :Need for RSV immunization Inject 0.5 mL into muscle once for 1 dose 1 Each 08/06/20 25 025 Respiratory Syncytial Virus Vaccine, Recomb., Adult (Abrysvo; 60+ or Preg.) 120 MCG/0.5ML SOLR (RSV)Indications :Need for RSV immunization Inject 0.5 mL into muscle once for 1 dose 1 Each 08/06/20 25 025 Active Problems Problem Noted Date Diagnosed Date Bilateral pulmonary embolism 08/01/2025 Hallux rigidus of right foot 06/19/2024 Essential [...] Encounters Date Type Department Care Team Description 08/17/[address] [address] Paco Sharma MD General 08/09/2025 2:20 PM CDT Office Visit [address] [address] Paco Sharma MD Bilateral pulmonary embolism (HCC) (Primary Dx); Primary hypertension; FABBY (obstructive sleep apnea); Class 1 obesity due to excess calories with serious comorbidity and body mass index (BMI) of 34.0 to 34.9 in adult 08/09/2025 Travel 08/06/2025 8:30 AM CDT Office Visit [facility] [address] [place] [phone] Zoe Gaona APRN-CNP Hospital discharge follow-up (Primary Dx); Need for RSV immunization 08/06/2025 Travel 08/04/2025 Travel 08/01/2025 7:52 PM CDT - 08/03/2025 1:30 PM CDT Hospital Encounter [facility] [address] [place] [address] Kenisha Longoria MD [place], MD Marina Mcintyre Jonathan W, MD Morga, Sabina, MD Family Medicine Discharge Disposition: Home or Self Care 08/01/2025 Travel 06/24/2025 Travel 06/23/2025 Telephone [facility] - Centralized Scheduling [address] [place] [phone] Zoe Gaona, JAYRO-ENGRAVER Reschedule Appointment from Last 3 Months Family [...] Date Smoking Tobacco: Never Smokeless Tobacco: Never Tobacco Cessation:Counseling Given: Not Answered Alcohol Use Standard Drinks/Week Comments Yes 1 (1 standard drink = 0.6 oz pur e alcohol) 6/8 drinks a year AUDIT-C Answer Date Recorded Q1: How often do you have a drink containing alc ohol? Monthly or less 08/01/2025 Q2: How many drinks containi ng alcohol do you have on a typical day when you are drinking? 1 or 2 08/01/2025 Q3: How often do you have si x or more drinks on one occasion? Never 08/01/2025 Overall Financial Resource Strain (CARDIA) Answe r Date Recorded How hard is it for you to pa y for the very basics like food, housing, medical care, and heating? Not hard at all 08/01/2025 PHQ-2 Answer Date Recorded Patient Health Questionnaire-2 Score 0 08/09/2025 [facility] - Occupational Stress Questionnaire Answer Date Recorded Do you feel stress - tense, restless, nervous, or anxious, or unable to sleep at night because your mind is troubled all the time - these days? Not at all 08/01/2025 PRAPARE - Transportation Answer Date Re corded In the past 12 months, has l ack of transportation kept you from medical appointments or from getting medications? No 02/2025 In the past 12 months, has l ack of transportation kept you from meetings, work, or from getting things needed for daily living? No 08/01/2025 Housing Stability Vital Sign Answer Vito e Recorded In the last 12 months, was t here a time when you were not able to pay the mortgage or rent on time? No 08/01/2025 In the past 12 months, how m any times have you moved where you were living? 1 08/01/2025 At any time in the past 12 m [facility], were you homeless or living in a residential (including now)? No 08/01/2025 Hunger Vital Sign Answer Date Recorded Within the past 12 months, y ou worried that your food would run out before you got the money to buy more. Never true 08/09/20 25 Within the past 12 months, t he food you bought just didn't last and you didn't have money to get more. 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 on file Not on file Last Filed Vital Signs Vital Sign Reading Time Taken Comments Blood Pressure 128/83 08/09/2025 2:29 PM CDT Pulse 81 08/09/2025 2:29 PM CDT Temperature 36.6 C (97.9 F) 08/09/2025 2:29 PM CDT Respiratory Rate 18 08/03/2025 4:15 AM CDT Oxygen Saturation 99% 08/09/2025 2:29 PM CDT Inhaled Oxygen Concentration - - Weight 114.9 kg (253 lb 4 oz) 08/09/2025 2:29 PM CDT Height 182.9 cm (6') 08/09/2025 2:29 PM CDT Body Mass Index 34.35 08/09/2025 2:29 PM CDT Plan of Treatment Upcoming Encounters Date Type Department Care Team (Late st Contact Info) Description 08/26/2025 11:20 AM CDT Office Visit [facility] [address] [facility] [address] [place] [phone] Williams Urias MD [address] [facility] [address] [place] [address] 09/03/2025 1:00 PM [employer] Appointment [facility] Health Imaging Services - CT Scan [address], [address] [place] [address] Paco Sharma MD [address] [facility] [address] [place] [address] 09/07/2025 1:20 PM [employer]PER[employer]ING [employer]F Documentation [facility] Health Cancer Care [address] [place] [address] [address] [place] [address] 09/07/2025 1:40 PM [employer]PERVISING [employer]F Office Visit [facility] [address] [place] [address] Paco Sharma MD [address] [facility] [address] [place] [address] 09/08/2025 1:00 PM [employer]PERVISING [employer]F Appointment [facility] Health Vascular Services [address] [place] [address] Javan Angeles MD [address] [place] [address] [place] [address] 09/15/2025 12:30 PM [employer]PER[employer]ING [employer] Office Visit [facility] [address] [place] [address], [place] [phone] Javan Angeles MD [address] [place] [address] [place] [address] 2025 9:00 AM [employer]PER[employer]ING [employer] Office Visit [facility] [address] [place] [address], [place] [address] Zoe Gaona, PEOPLESOFT-ENGRAVER [address] [place] [phone] 02/04/2026 8:30 AM CDT Office Visit [facility] [address] [place] [address], [facility] [place] [phone] Zoe Gaona, PEOPLESOFT-ENGRAVER [address] [phone] Health Maintenance Due Date Last Done Comments COLOGUARD (AGES 45-75) - COLON CA SCREENING [address] CT COLONOGRAPHY - COLON [...] 1-dose series) 2016 COVID-19 VACCINE ( - season) 2025 INFLUENZA VACCINE (#1) 2025 07/29/2023 SCREENING FOR DIABETES 08/09/2028 , 08/03/2025, 08/02/2025, Additional history exists COLON MONITORING 06/15/2032 06/15/2022, 06/15/2022 COLONOSCOPY - COLON CA SCREENING 06/15/2032 06/15/2022, 06/15/2022 Colorectal Cancer Screening 06/15/2032 MEDICARE AWV CALENDAR YEAR Completed 08/06/2025 DEPRESSION SCREENING Completed 08/09/2025, 01/23/2024, 02/16/2022 HEPATITIS B VACCINE Aged Out No longe [...] A/C/Y/W VACCINE Aged Out No longer eligible based on patient's age to complete this topic Procedures Procedure Name Priority Date/Time Associated Diagnosis Comments BETA-2 GLYCOPROTEIN 1 ANTIBODY IGG/IGM PANEL Routine 08/13/2025 9:14 AM CDT Bilateral pulmonary embolism (HCC) Primary hypertension FACTOR V LEIDEN MUTATION PANEL Routine 08/10/2025 10:37 AM CDT PROTHROMBIN [id number] PANEL Routine 08/10/2025 10:37 AM CDT Bilateral pulmonary embolism (HCC) Primary hypertension FABBY (obstructive sleep apnea) CARDIAC RHYTHM STRIP ORDER 08/09/2025 5:19 PM CDT CBC W AUTO DIFFERENTIAL (CANCER CARE) Routine 08/09/2025 3:18 PM CDT Bilateral pulmonary embolism (HCC) Primary hypertension FABBY (obstructive sleep apnea) LUPUS ANTICOAGULANT PANEL W RFLX Routine 08/09/2025 3:18 PM CDT D-DIMER Routine 08/09/2025 3:18 PM CDT CARDIOLIPIN ANTIBODY IGG/IGM PANEL Routine 08/09/2025 3:18 PM CDT Bilateral pulmonary embolism (HCC) Primary hypertension FABBY (obstructive sleep apnea) [id number] BLOOD Routine 08/09/2025 3:18 PM CDT Bilateral pulmonary embolism (HCC) Primary hypertension FABBY (obstructive sleep apnea) RHEUMATOID FACTOR BLOOD QUANTITATIVE Routine 08/09/2025 3:18 PM CDT Bilateral pulmonary embolism (HCC) Primary hypertension FABBY (obstructive sleep apnea) VENUS BLOOD SCREEN W/REFLEX TITER Routine 08/09/2025 3:18 PM CDT Bilateral pulmonary embolism (HCC) Primary hypertension FABBY (obstructive sleep apnea) COMPREHENSIVE METABOLIC PANEL Routine 08/09/2025 3:18 PM CDT Bilateral pulmonary embolism (HCC) Primary hypertension FABBY (obstructive sleep apnea) GLUCOSE - POINT OF CARE Routine 08/03/2025 8:33 AM CDT VAS BILATERAL VENOUS DUPLEX LE Routine 08/02/2025 5:53 PM CDT Bilateral pulmonary embolism (HCC) GLUCOSE - POINT OF CARE Routine 08/02/2025 12:43 PM CDT PTT Timed 08/02/2025 11:48 AM CDT ECHO COMPLETE W CONTRAST Routine 08/02/2025 11:35 AM CDT Bilateral pulmonary embolism (HCC) GLUCOSE - POINT OF CARE Routine 08/02/2025 8:36 AM CDT TROPONIN-I HIGH SENSITIVE REFLEX 1HOUR Timed 08/02/2025 6:35 AM CDT PTT Timed 08/02/2025 4:36 AM CDT PT-INR Routine 08/02/2025 4:36 AM CDT CBC W AUTO DIFFERENTIAL Routine 08/02/2025 4:36 AM CDT MAGNESIUM BLOOD Routine 08/02/2025 4:36 AM CDT BASIC METABOLIC PANEL (CALCIUM TOTAL) Routine 08/02/2025 4:36 AM CDT TROPONIN-I HIGH SENSITIVE BASELINE + 1HR AM Draw 08/02/2025 4:36 AM CDT IR TRANSLUM THROMBECTOMY ARTERIAL Routine 08/02/2025 12:51 AM CDT Acute pulmonary embolism, unspecified pulmonary embolism type, unspecified whether acute cor pulmonale present (HCC) Bilateral pulmonary embolism (HCC) HOME CPAP/BIPAP FOR HOSP USE: NOCTURNAL 02 Routine 08/01/2025 9:07 PM CDT PTT Add on 08/01/2025 8:36 PM CDT NT-PRO BNP STAT 08/01/2025 8:36 PM CDT TROPONIN-I HIGH SENSITIVE STAT 08/01/2025 8:36 PM CDT PT-INR STAT 08/01/2025 8:36 PM CDT CBC W AUTO DIFFERENTIAL STAT 08/01/2025 8:36 PM CDT COMPREHENSIVE METABOLIC PANEL STAT 08/01/2025 8:36 PM CDT ENDOSCOPY, COLON, SCREENING Routine 06/15/2022 10:03 AM CDT from Last 3 Months or Most Recently Relevant to Health Maintenance Results * BETA-2 GLYCOPROTEIN 1 ANTIBODY IGG/IGM PANEL (08/13/2025 9:14 AM CDT) [facility] Beta-2 Glycoprotein I Antibody IgG <9 0 - 20 GPI IgG units [facility] ACCOUNT BILL Beta-2 Glycoprotein I Antibody IgM <9 0 - 32 GPI IgM units [facility] ACCOUNT BILL Blood BLOOD SPECIMEN / Unknown 08/13/2025 9:14 AM CDT 08/13/2025 Comment:Blood Release to pat i Narrative [facility] ACCOUNT BILL - 08/16/2025 3:10 PM CDT Performed at: 01 - [address] [id number] Subsystems Engineer: Jayjay Gordon PhD, Phone: [phone] Paco Sharma MD LAB - CHEMISTRY ORDERABLES Final Result [facility] ACCOUNT BILL [address] [place] [address] * PROTHROMBIN [id number] PANEL (08/10/2025 10:37 AM CDT) [facility] Factor II DNA Analysis Comment [facility] ACCOUNT BILL Comment: Result: c.*97G>A - Not Detected This result is not associated with an increased risk for venous thromboembolism. See Additional Clinical Information and Comments. Additional Clinical Information: Venous thromboembolism is a multifactorial disease influenced by genetic, environmental, and circumstantial risk factors. The c.*97G>A variant in the F2 gene is a genetic risk factor for venous thromboembolism. Heterozygous carriers have a 2- to 4-fold increased risk for venous thromboembolism. Homozygotes for the c.*97G>A variant are rare. The annual risk of VTE in homozygotes has been reported to be 1.1%/year. Individuals who carry both a c.*97G>A variant in the F2 gene and a c.1601G>A (p. [id number]) variant in the F5 gene (commonly referred to as Factor V Leiden) have an approximately 20- fold increased risk for venous thromboembolism. Risks are likely to be even higher in more complex genotype combinations involving the F2 c.*97G>A variant and Factor V Leiden (PMID: 89380416). Additional risk factors include but are not limited to: deficiency of protein C, protein S, or antithrombin III, age, male sex, personal or family history of deep vein thromboembolism, smoking, surgery, prolonged immobilization, malignant neoplasm, tamoxifen treatment, raloxifene treatment, oral contraceptive use, hormone replacement therapy, and . Management of thrombotic risk and thrombotic events should follow established guidelines and fit the clinical circumstance. This result cannot predict the occurrence or recurrence of a thrombotic event. Comments: Genetic counseling is recommended to discuss the potential clinical implications of positive results, as well as recommendations for testing family members. Genetic Coordinators are available for health care providers to discuss results at [phone] ([phone]). Test Details: Variant analyzed: c.*97G>A, previously referred to as [id number] Methods/Limitations: DNA analysis of the F2 gene (NM_000506.5) was performed by PCR amplification followed by restriction enzyme analysis. The diagnostic sensitivity is >99%. Results must be combined with clinical information for the most accurate interpretation. Molecular-based testing is highly accurate, but as in any laboratory test, diagnostic errors may occur. False positive or false negative results may occur for reasons that include genetic variants, blood transfusions, bone marrow transplantation, somatic or tissue-specific mosaicism, mislabeled samples, or erroneous representation of family relationships. This test was developed and its performance characteristics determined by [employer]. It has not been cleared or approved by the Food and Drug Administration. References: Bebeto S, Nany AK, Cooper R, Rufus WW, Jaylan PLEITEZ; ACMG Professional Practice and Guidelines Committee. Addendum: [place] [employer] consensus statement on factor V Leiden mutation testing. Shantel Med. 2020Dec 30. doi: 10.1038/o70345-039-68049-d. PMID: 50331179. Erika GUTIERREZ. Prothrombin Thrombophilia. 2005May 21 [Updated 2020Dec 01'. In: Chester MP, Dhara HH, Maico RA, et al., editors. Angelika(R) [Internet'. [place] ([place]): [facility]; 5684-4639. Available from: https://www.ncbi.nlm.nih.gov/books/MXC0730/ Moose S, Nany AK, Angelo X, Obed B, Yina EB, Monica P, Shaun CS; [employer] Laboratory Rubber Heel And Sole Press Tender Committee. Venous thromboembolism laboratory testing (factor V Leiden and factor II c.*97G>A), 2018 update: a technical standard of the [place] [employer] and Genomics (ACMG). Shantel Med. 2018 Sep;20(12):9697-1249. doi: 10.1038/m62516-466-6164-b. Epub 2017Aug 01. PMID: 42562608. Reviewed By Comment [facility] ACCOUNT BILL Comment: Technical Component performed at [facility] [place] Professional Component performed by: Constanza Garcia, PhD, [facility] [id number], [facility], [address] [email or web address] [address] Blood BLOOD SPECIMEN / Unknown 08/10/2025 10:37 AM CDT 08/10/2025 Comment:Blood Release to pat i Narrative [facility] ACCOUNT BILL - 08/16/2025 1:09 PM CDT Performed at: - [facility] [place] [email or web address], [place], [place] [id number] Subsystems Engineer: Krysta Valencia [facility], Phone: [phone] us Paco Sharma MD LAB - COAGULATION ORDERABLES Fin al Result [facility] ACCOUNT BILL [address] [place] [address] * FACTOR V LEIDEN MUTATION PANEL (08/10/2025 10:37 AM CDT) [facility] Factor V Leiden Comment [facility] INSURANCE BILL Comment: Result: c.1601G>A (p.[id number]) - Not Detected This result is not associated with an increased risk for venous thromboembolism. See Additional Clinical Information and Comments. Additional Clinical Information: Venous thromboembolism is a multifactorial disease influenced by genetic, environmental, and circumstantial risk factors. The c.1601G>A (p. [id number]) variant in the F5 gene, commonly referred to as Factor V Leiden, is a genetic risk factor for venous thromboembolism. Heterozygous carriers of this variant have a 6- to 8-fold increased risk for venous thromboembolism. Individuals homozygous for this variant (ie, with a copy of the variant on each chromosome) have an approximately 80-fold increased risk for venous thromboembolism. Individuals who carry both a c.*97G>A variant in the F2 gene and Factor V Leiden have an approximately 20-fold increased risk for venous thromboembolism. Risks are likely to be even higher in more complex genotype combinations involving the F2 c.*97G>A variant and Factor V Leiden (PMID: 39018707). Additional risk factors include but are not limited to: deficiency of protein C, protein S, or antithrombin III, age, male sex, personal or family history of deep vein thromboembolism, smoking, surgery, prolonged immobilization, malignant neoplasm, tamoxifen treatment, raloxifene treatment, oral contraceptive use, hormone replacement therapy, and . Management of thrombotic risk and thrombotic events should follow established guidelines and fit the clinical circumstance. This result cannot predict the occurrence or recurrence of a thrombotic event. Comment: Genetic counseling is recommended to discuss the potential clinical implications of positive results, as well as recommendations for testing family members. Genetic Coordinators are available for health care providers to discuss results at [phone] ([phone]). Test Details: Variant Analyzed: c.1601G>A (p. [id number]), referred to as Factor V Leiden Methods/Limitations: DNA analysis of the F5 gene (NM_000130.5) was performed by PCR amplification followed by electrophoresis. The diagnostic sensitivity is >99%. Results must be combined with clinical information for the most accurate interpretation. Molecular-based testing is highly accurate, but as in any laboratory test, diagnostic errors may occur. False positive or false negative results may occur for reasons that include genetic variants, blood transfusions, bone marrow transplantation, somatic or tissue-specific mosaicism, mislabeled samples, or erroneous representation of family relationships. This test was developed and its performance characteristics determined by [employer]. It has not been cleared or approved by the Food and Drug Administration. References: Bebeto Redman, Nany STOKES, Cooper R, Rufus WW, Jayaln JH; ACMG Professional Practice and Guidelines Committee. Addendum: [place] [employer] consensus statement on factor V Leiden mutation testing. Shantel Med. 2020Dec 30. doi: 10.1038/e59384-114- 89749-b. PMID: 57221621. Erika GUTIERREZ. Factor V Leiden Thrombophilia. 1998March 10 (Updated 2017Oct 31). In: Chester MP, Dhara HH, Maico RA, et al., editors. Socialspielsampson(R) (Internet). [place] ([place]): [facility]; 7333-0622. Available from: https://www.ncbi.nlm.nih.gov/books/RPE3921/ Moose S, Nany STOKES, Angelo X, Obed B, Yina EB, Monica P, Shaun CS; [employer] Laboratory Rubber Heel And Sole Press Tender Committee. Venous thromboembolism laboratory testing (factor V Leiden and factor II c. *97G>A), 2018 update: a technical standard of the [place] [employer] and Genomics (ACMG). Shantel Med. 2018 Sep;20(12): 2513-2544. doi: 10.1038/h71153-100-0829-x. Epub 2017Aug 01. PMID: 44078012. Reviewed By Comment [facility] INSURANCE BILL Comment: Technical Component performed at [facility] Professional Component performed by: Constanza Garcia, PhD, [facility] [id number], [facility], [email or web address] [facility] [id number] 08/10/2025 10:3 7 AM CDT 08/10/2025 Narrative [facility] INSURANCE BILL - 08/16/2025 3:10 PM CDT Performed at: - [facility] [email or web address], [place], [place] [id number] Subsystems Engineer: Krysta Valencia [facility], Phone: [phone] us Paco Sharma MD LAB - COAGULATION ORDERABLES Fin al Result [facility] INSURANCE BILL [address] [place] [address] * CARDIAC RHYTHM STRIP ORDER (08/09/2025 5:19 PM CDT) Narrative 08/09/2025 5:19 PM CDT Ordered by an unspecified provider. us Scanned Document CARDIAC SERVICES ORDERABLES Joshua rosita Result - Final * CBC W AUTO DIFFERENTIAL (CANCER CARE) (08/09/2025 3:18 PM CDT) WBC 6.9 4.4 - 10.7 x10E9/L 08/09/2025 3:43 PM CDT [facility] Neutrophils % 56.4 44.0 - 73.0 % 08/09/2025 3:43 PM CDT [facility] Lymphocytes % 31.4 20.0 - 43.0 % 08/09/2025 3:43 PM CDT [facility] Monocytes % 7.2 5.0 - 13.0 % 08/09/2025 3:43 PM CDT [facility] Eosinophils % 3.5 0.0 - 6.0 % 08/09/2025 3:43 PM CDT [facility] Basophils % 0.9 0.0 - 2.0 % 08/09/2025 3:43 PM CDT [facility] Immature Granulocytes 0.6 <=1 % 08/09/2025 3:43 PM CDT [facility] Neutrophil Absolute 3.92 2.01 - 7.14 x10E9/L 08/09/2025 3:43 PM CDT [facility] Lymphocytes Absolute 2.18 1.07 - 3.94 x10E9/L 08/09/2025 3:43 PM CDT [facility] Monocytes Absolute 0.50 0.26 - 1.07 x10E9/L 08/09/2025 3:43 PM CDT [facility] Eosinophils Absolute 0.24 0 - 0.47 x10E9/L 08/09/2025 3:43 PM CDT [facility] Basophils Absolute 0.06 0 - 0.08 x10E9/L 08/09/2025 3:43 PM CDT [facility] RBC 4.68 3.80 - 5.40 x10E12/L 08/09/2025 3:43 PM CDT [facility] Hemoglobin 14.2 12.0 - 17.6 gm/dL 08/09/2025 3:43 PM CDT [facility] Hematocrit 41.5 35.2 - 51.7 % 08/09/2025 3:43 PM CDT [facility] MCV 88.7 80.7 - 98.3 fl 08/09/2025 3:43 PM CDT [facility] MCH 30.3 26.7 - 34.0 pg 08/09/2025 3:43 PM CDT [facility] [facility] MCHC 34.2 30.8 - 35.9 gm/dL 08/09/2025 3:43 PM CDT SS [facility] RDW-CV 13.0 12.1 - 14.9 % 08/09/2025 3:43 PM CDT SS [facility] Platelet Count 278 153 - 416 [id number]/L 08/09/2025 3:43 PM CDT SS [facility] MPV 9.6 9.4 - 12.9 fl 08/09/2025 3:43 PM CDT SS [facility] NRBC 0.0 <=0 /100 WBC 08/09/2025 3:43 PM CDT SS [facility] Blood BLOOD SPECIMEN / Unknown 08/09/2025 3:18 PM CDT 08/09/2025 3:18 PM CDT us Paco Sharma MD LAB - HEMATOLOGY ORDERABLES Frida fagan Result [facility] [address] * CARDIOLIPIN ANTIBODY IGG/IGM PANEL (08/09/2025 3:18 PM CDT) Cardiolipin Antibody IgG <9 0 - 14 GPL U/mL [facility] ACCOUNT BILL Comment: Negative: <15 Indeterminate: 15 - 20 Low-Med Positive: >20 - 80 High Positive: >80 Cardiolipin Antibody IgM <9 0 - 12 MPL U/mL [facility] ACCOUNT BILL Comment: Negative: <13 Indeterminate: 13 - 20 Low-Med Positive: >20 - 80 High Positive: >80 Blood BLOOD SPECIMEN / Unknown 08/09/2025 3:18 PM CDT 08/09/2025 Comment:Blood Release to pat i Narrative [facility] ACCOUNT BILL - 08/10/2025 3:10 PM CDT Performed at: [facility] [address] [place], [place] [id number] Subsystems Engineer: Jayjay Gordon PhD, Phone: [phone] us Paco Sharma MD LAB - SEROLOGY ORDERABLES Final Result [facility] ACCOUNT BILL [address] [place] [address] * (ABNORMAL) LUPUS ANTICOAGULANT PANEL W RFLX (08/09/2025 3:18 PM CDT) [facility] PTT-LA 30.3 0.0 - 43.5 sec [facility] ACCOUNT BILL dRVVT 57.0(H) 0.0 - 47.0 sec [facility] ACCOUNT BILL Interpretation Comment: [facility] ACCOUNT BILL Comment: No lupus anticoagulant was detected. These results are consistent with specific inhibitors to one or more common pathway factors (X, V, II or fibrinogen). Performed at: [facility] [id number] Subsystems Engineer: Diogo Mancia MD, Phone: [phone] dRVVT 1:1 Mix 45.4(H) 0.0 - 40.4 sec [facility] ACCOUNT BILL Comment: Performed at: [facility] [id number] Subsystems Engineer: Diogo Mancia MD, Phone: [phone] dRVVT Confirmation Ratio 1.0 0.8 - 1.2 ratio [facility] ACCOUNT BILL 08/09/2025 3:18 PM CDT 08/11/2025 Narrative [facility] ACCOUNT BILL - 08/18/2025 6:09 AM CDT Performed at: - [address] [id number] Subsystems Engineer: Diogo Mancia MD, Phone: [phone] Paco Sharma MD LAB - HEMATOLOGY ORDERABLES Frida l Result Performing Organization Address [facility]/ZIP Co de Phone Number [facility] ACCOUNT BILL [address] [place] [address] * RHEUMATOID FACTOR BLOOD QUANTITATIVE (08/09/2025 3:18 PM CDT) Rheumatoid Factor <10.0 <14.0 IU/mL [facility] ACCOUNT BILL Blood BLOOD SPECIMEN / Unknown 08/09/2025 3:18 PM CDT 08/09/2025 Comment:Blood Release to pat i Narrative [facility] ACCOUNT BILL - 08/10/2025 11:11 AM CDT Performed at: - [address] [id number] Subsystems Engineer: Jayjay Gordon PhD, Phone: [phone] Paco Sharma MD LAB - CHEMISTRY ORDERABLES Final Result Performing Organization Address [facility] de Phone Number [facility] ACCOUNT BILL [address] [place] [address] * VENUS BLOOD SCREEN W/REFLEX TITER (08/09/2025 3:18 PM CDT) VENUS Negative [facility] ACCOUNT BILL Comment: Negative <1:80 Borderline 1:80 Positive >1:80 ICAP nomenclature: AC-0 For more information about Hep-2 cell patterns use ANApatterns.org, the official website for the International Consensus on Antinuclear Antibody (VENUS) Patterns (ICAP). Blood BLOOD SPECIMEN / Unknown 08/09/2025 3:18 PM CDT 08/09/2025 Comment:Blood Release to pat i Narrative [facility] ACCOUNT BILL - 08/10/2025 5:10 PM CDT [facility]formed [facility] [address] [place], [place] [id number] Subsystems Engineer: Jayjay Gordon PhD, Phone: [phone] Paco Sharma MD LAB - CHEMISTRY ORDERABLES Final Result Performing Organization Address [facility] Co de Phone Number [facility] ACCOUNT BILL [address] [place] [address] * [id number] BLOOD (08/09/2025 3:18 PM CDT) Pathologist [facility] Beta-2 Microglobulin 2.2 0.6 - 2.4 mg/L [facility] ACCOUNT BILL Comment: Siemens K[employer] Technologiesulite 2000 Immunochemiluminometric assay (ICMA) Values obtained with different assay methods or kits cannot be used interchangeably. Results cannot be interpreted as absolute evidence of the presence or absence of malignant disease. Blood BLOOD SPECIMEN / Unknown 08/09/2025 3:18 PM CDT 08/09/2025 Comment:Blood Release to [facility] ACCOUNT BILL - 08/12/2025 7:09 AM CDT Performed at: - [address] [id number] Subsystems Engineer: Diogo Mancia MD, Phone: [phone] Paco Sharma MD LAB - CHEMISTRY ORDERABLES Final Result Performing Organization Address [facility] de Phone Number [facility] ACCOUNT BILL [address] [place] [address] * (ABNORMAL) D-DIMER (08/09/2025 3:18 PM CDT) [facility] D-Dimer 1.70(H) 0.00 - 0.49 mg/L FEU [facility] ACCOUNT BILL Comment: According to the assay men's custom hair piece consultant's published package insert, a normal (<0.50 mg/L FEU) D-dimer result in conjunction with a non-high clinical probability assessment, excludes deep vein thrombosis (DVT) and pulmonary embolism (PE) with high sensitivity. D-dimer values increase with age and this can make VTE exclusion of an older population difficult. To address this, the [employer], based on best available evidence and recent guidelines, recommends that clinicians use age-adjusted D-dimer thresholds in patients greater than 50 years of age with: a) a low probability of PE who do not meet all Pulmonary Embolism Rule Out Criteria, or b) in those with intermediate probability of PE. The formula for an age-adjusted D-dimer cut-off is age/100. For example, a 60 year old patient would have an age-adjusted cut-off of 0.60 mg/L FEU and an 80 year old 0.80 mg/L FEU. 08/09/2025 3:18 PM CDT 08/11/2025 Narrative [facility] ACCOUNT BILL - 08/11/2025 1:10 PM CDT Performed at: [address] [place] [id number] Subsystems Engineer: Jayjay Gordon PhD, Phone: [phone] Paco Sharma MD LAB - COAGULATION ORDERABLES Fin al Result Performing Organization Address City/State/[facility] Co de Phone Number [facility] ACCOUNT BILL [address] [place] [address] * (ABNORMAL) COMPREHENSIVE METABOLIC PANEL (08/09/2025 3:18 PM CDT) Only the most recent of2 resultswithin the time period is included. [facility] Glucose 109(H) 70 - 99 mg/dL [facility] ACCOUNT BILL BUN 22 8 - 27 mg/dL [facility] ACCOUNT BILL Creatinine 1.08 0.76 - 1.27 mg/dL [facility] ACCOUNT BILL eGFR by CKD-EPI 75 >59 mL/min/1.7 3 [facility] ACCOUNT BILL BUN/Creatinine Ratio 20 10 - 24 [facility] ACCOUNT BILL Sodium 137 134 - 144 mmol/L [facility] ACCOUNT BILL Potassium 4.0 3.5 - 5.2 mmol/L [facility] ACCOUNT BILL Chloride 101 96 - 106 mmol/L [facility] ACCOUNT BILL CO2 23 20 - 29 mmol/L [facility] ACCOUNT BILL Calcium 9.5 8.6 - 10.2 mg/dL [facility] ACCOUNT BILL Protein Total 6.6 6.0 - 8.5 g/dL [facility] ACCOUNT BILL Albumin 4.4 3.9 - 4.9 g/dL [facility] ACCOUNT BILL Globulin Total 2.2 1.5 - 4.5 g/dL [facility] ACCOUNT BILL Bilirubin Total 0.3 0.0 - 1.2 mg/dL [facility] ACCOUNT BILL Alkaline Phosphatase 63 47 - 123 IU/L [facility] ACCOUNT BILL AST 20 0 - 40 IU/L [facility] ACCOUNT BILL ALT 33 0 - 44 IU/L [facility] ACCOUNT BILL Blood BLOOD SPECIMEN / Unknown 08/09/2025 3:18 PM CDT 08/09/2025 Comment:Blood Release to pat i Narrative [facility] ACCOUNT BILL - 08/10/2025 1:10 PM CDT Performed at: 01 - [facility] [address] [place], [place] [id number] Subsystems Engineer: Jayjay Gordon PhD, Phone: [phone] us Paco Sharma MD LAB - CHEMISTRY ORDERABLES Final Result Performing Organization Address City/[facility]/ZIP Co de Phone Number [facility] ACCOUNT BILL [address] [place] [address] * (ABNORMAL) GLUCOSE - POINT OF CARE (08/03/2025 8:33 AM CDT) Only the most recent of3 resultswithin the time period is included. [facility] Glucose WB/POC 108(H) 70 - 99 mg/dL 08/03/2025 8:45 AM CDT [facility] Specimen Type Arterial/C apillary 08/03/2025 8:45 AM CDT [facility] Blood BLOOD SPECIMEN / Unknown 08/03/2025 8:33 AM CDT 08/03/2025 8:45 AM CDT us Lillie Graham MD LAB - POINT OF CARE ORDERABLES F inal Result [facility] [address] [place] [address] * VAS Bilateral Venous Duplex Le (08/02/2025 5:53 PM CDT) Anatomical Region Laterality Modality Lower Extremity Ultrasound 08/02/2025 4:38 PM CDT Narrative Procedure Note Marcelo Lozano MD - 08/04/2025 [place] [id number] Lower Extremity Venous Ultrasound Report Pat.Name: COLLEEN KUMAR Pat.ID: [id number] .Date: 08/02/2025 Refer.MD: Hussain Freitas Exam Time: 4:38:00 PM Study Type:LE Venous Age: 1 1955,69Y Sex: MALE Sonogrphr: Paige Mclean RVT Pat. Stat.:Inpatient ICD - 9: Bilateral pulmonary embolism (HCC) [I26.99 (ICD-10-CM)' CPT - 4: 92438 Reason for Study: Pulmonary Embolism Procedures: Lower Extremity Venous - Bilateral Race: 1 Visit ID: [id number] ++++++++++++++++++++++++++++++++++++ SUMMARY: ++++++++++++++++++++++++++++++++++++ No evidence of deep or superficial venous thrombosis or insufficiency of either the right or left lower extremity. ++++++++++++++++++++++++++++++++++++ FINDINGS: ++++++++++++++++++++++++++++++++++++ Procedure: Venous duplex imaging of both lower extremities was performed using color flow and spectral Doppler analysis. The contralateral common femoral vein was also examined. Study Quality: This study is of adequate technical quality. Bilateral: All vessels seen appear patent and compressible. There was spontaneous and phasic flow seen in all the proximal major veins of both lower extremities. Appropriate augmentation with distal compression. No evidence of reflux with proximal compression. Appropriate augmentation with distal compression. Suboptimal visualization of calf veins due to body habitus. Signed 08/04/2025 09:21 PM Marcelo Ba MD us Hussain Freitas MD VASCULAR LAB ORDERABLES E dited * (ABNORMAL) PTT (08/02/2025 11:48 AM CDT) Only the most recent of3 resultswithin the time period is included. PTT 153.0(H) 23.0 - 38.4 sec 08/02/2025 12:55 PM CDT [facility] Blood BLOOD SPECIMEN / Unknown Lab Venipuncture / Unknown 08/02/2025 11:48 AM CDT 08/02/2025 12:29 PM CDT Narrative [facility] - 08/02/2025 12:55 PM CDT Heparin Therapeutic Range for PTT: 69.0 - 110.0 seconds. us Hussain Freitas MD LAB - COAGULATION ORDERAB LES Final Result [facility] [address] [place], [place] [id number] * ECHO COMPLETE W CONTRAST (08/02/2025 11:35 AM CDT) AV area index 1.105 cm /m SSM CV FUJI PACS LA vol index 0.023 l/m SSM CV FUJI PACS Dimensionless Index 0.783 unitless SSM CV FUJI PACS LA area A4C 17.9 cm SSM CV FUJI PACS Myocardial strain charge 2 unitless SSM CV FUJI PACS IVSd 2D 1.097 cm SSM CV FUJ I PACS LVIDd 4.214 cm SSM CV FUJ I PACS LVIDs 2.882 cm SSM CV FUJ I PACS LVOT diam 2.092 cm SSM CV FUJ I PACS LVPWd 1.125 cm SSM CV FUJ I PACS LV biplane EF 75.791 % SSM CV FUJI PACS LV A2C EF 75.206 % SSM CV FUJ I PACS LV A4C EF 75.996 % SSM CV FUJ I PACS LV EDV A2C 99.653 ml SSM CV FU JI PACS LV EDV A4C 122.557 ml SSM CV FU JI PACS LV ESV A2C 24.708 ml SSM CV FU JI PACS LV ESV A4C 29.419 ml SSM CV FU JI PACS LVOT pk grad 3.252 mmHg SSM CV FUJI PACS LVOT pk parvez 90.168 cm/s SSM CV F UJI PACS LVOT VTI 17.596 cm SSM CV FUJ I PACS LA size 3.475 cm SSM CV FUJ I PACS LA vol BP 56.681 ml SSM CV FUJ I PACS AV area pk parvez 3.007 cm SSM CV FUJI PACS AV area cont VTI 2.691 cm SSM CV FUJI PACS AV pk grad 3.353 mmHg SSM CV FU JI PACS AV mn grad 2.108 mmHg SSM CV FU JI PACS AV pk parvez 103.084 cm/s SSM CV FUJ I PACS AV VTI 22.477 cm SSM CV FUJ I PACS MV A pk parvez 61.436 cm/s SSM CV F UJI PACS MV E pk parvez 61.436 cm/s SSM CV F UJI PACS MV E' lateral parvez 6.983 cm/s SS M CV FUJI PACS PV pk parvez 95.289 cm/s SSM CV FUJ I PACS TAPSE 2.45 cm SSM CV FUJ I PACS TR pk parvez 243.113 cm/s SSM CV FUJ I PACS Anatomical Region Laterality Modality Ultrasound 08/02/2025 11:0 6 AM CDT Narrative 08/02/2025 4:49 PM CDT Summary * The left ventricle is normal in size with hyperdynamic systolic function and an estimated ejection fraction of 70-75% by visual estimate. Left ventricular wall motion is normal. * The left ventricular diastolic function is normal. * Right ventricle is mildly dilated with normal systolic function. * The pulmonary artery systolic pressure is normal, 27 mmHg. Patient Info Name: Colleen Kumar Age: 69 years : 1955 Gender: Male Ht: 72 in Wt: 250 lb BSA: 2.44 m2 BP: 142 / 82 mmHg Exam Date: 08/02/2025 11:06 AM Patient Status: I/P Study Site: [facility] Primary Location: [facility] EStudy Info Technical Quality: Adequate Exam Type: ECHO COMPLETE W CONTRAST Indications I26.99 - Bilateral pulmonary embolism (HCC) Procedure(s) * A complete 2D, color Doppler, spectral Doppler, and M-Mode transthoracic echocardiogram was performed. * An Ultrasound Enhancing Agent (UEA) was utilized to enhance endocardial definition, opacify the left ventricle and further assess left ventricular function and wall motion. Staff Referring Physician: Hussain Freitas Ordering Provider: Hussain Freitas Attending Physician: Hussain Freitas Assignment Officer: Wilton Milian Left Ventricle The left ventricle is normal in size. Left ventricular systolic function is hyperdynamic with an estimated ejection fraction of 70-75% by visual estimate. The left ventricular mass is normal. Left ventricular segmental wall motion is normal. The left ventricular diastolic function is normal. There is mildly increased left ventricular wall thickness. Right Ventricle The right ventricle is mildly dilated. Right ventricular systolic function is normal. Left Atrium The left atrium is normal in size with a left atrial volume index of 23 ml/m2 by BP MOD. Right Atrium The right atrium is normal in size. Atrial Septum Intact interatrial septum visualized by 2D and color Doppler imaging. Aortic Valve The aortic valve is trileaflet. There is no aortic valve stenosis. There is no aortic valve regurgitation. Pulmonic Valve The pulmonic valve is normal. There is no pulmonic valve stenosis. There is no pulmonic regurgitation. Mitral Valve The mitral valve is normal. There is no mitral valve stenosis. There is no mitral valve regurgitation. Tricuspid Valve The tricuspid valve is normal. There is trace tricuspid valve regurgitation. The pulmonary artery systolic pressure is normal, 27 mmHg. Inferior Vena Cava The inferior vena cava is normal in size (< 2.1 cm). There is > 50% collapse of the IVC upon inspiration with an estimated right atrial pressure of 3 mmHg. Pericardium/Pleural There is no pericardial effusion. Aorta The aortic root at the sinus of Valsalva is normal in size. The ascending aorta is normal in size. Measurements Left Ventricular Outflow Tract Name Value Normal LVOT 2D LVOT Diameter 2.1 cm LVOT Area 3.4 cm2 LVOT Doppler LVOT Peak Velocity 0.9 m/s LVOT Peak Gradient 3 mmHg LVOT Mean Velocity 61.65 cm/s LVOT Mean Gradient 2 mmHg LVOT VTI 17.6 cm LVOT VTI/AV VTI Ratio 0.8 LVOT Stroke Volume 60 ml LVOT Stroke Volume Index 25 ml/m2 35-58 Pulmonic Valve Name Value Normal PV Doppler PV Peak Velocity 1.0 m/s PV Peak Gradient 3 mmHg PV Accel Time 105.61 ms Mitral Valve Name Value Normal MV Diastolic Function MV E Peak Velocity 0.6 m/sec MV A Peak Velocity 0.6 m/sec MV E/A 1.0 MV Decel Time (PW) 260 ms MV Annular TDI MV Septal e' Velocity 5 cm/s >=8 MV E/e' (Septal) 12 <=8 MV Lateral e' Velocity 7 cm/s >=10 MV E/e' (Lateral) 9 <=8 MV e' Average 6 cm/s MV E/e' (Average) 10 Tricuspid Valve Name Value Normal TV Regurgitation Doppler TR Peak Velocity 2.4 m/s TR Peak Gradient 24 mmHg Estimated PAP/RSVP RA Pressure 3 mmHg <=5 PA Systolic Pressure 27 mmHg <35 RV Systolic Pressure 27 mmHg <36 TV Annular TDI TV Lateral Serenity s' Velocity 18 cm/s 10-19 Aorta Name Value Normal Ascending Aorta Ao Root Diameter (2D) 4.0 cm Ao Root Diam Index (2D) 1.6 cm/m2 Aortic Valve Name Value Normal AV Doppler AV Peak Velocity 1.03 m/s AV Peak Gradient 3 mmHg AV Mean Gradient 2 mmHg AV VTI 22 cm AV Area (Cont Eq VTI) 2.69 cm2 >=2.00 AV Area (Cont Eq Parvez) 3.01 cm2 AV DI (VTI) 0.78 AV DI (Parvez) 0.87 AV Regurgitation 2D LVOT Area 3.44 cm2 Ventricles Name Value Normal LV Dimensions 2D/MM IVS Diastolic Thickness (2D) 1.1 cm 0.6-1.0 LVID Diastole (2D) 4.2 cm 4.2-5.8 LVPW Diastolic Thickness (2D) 1.1 cm 0.6-1.0 LVID Systole (2D) 2.9 cm 2.5-4.0 LV Mass (2D Cubed) 160 g 88-224 LV Mass Index (2D Cubed) 66 g/m2 49-115 Relative Wall Thickness (2D) 0.53 <=0.42 LV Fractional Shortening/Ejection Fraction 2D/MM LV Fractional Shortening (2D) 32 % 25-43 LV EF (2D Teichdeviz) 60 % 52-72 LV Diastolic Volume (4C MOD) 123 ml LV EF (4C MOD) 76 % LV Diastolic Volume (2C MOD) 100 ml LV EF (2C MOD) 75 % LV Diastolic Volume (BP MOD) 114 ml 62-150 LV Diastolic Volume Index (BP MOD) 47 ml/m2 34-74 LV Systolic Volume (BP MOD) 28 ml 21-61 LV Systolic Volume Index (BP MOD) 11 ml/m2 11-31 LV EF (BP MOD) 76 % 52-72 LV Diastolic Length (4C) 9.7 cm LV Systolic Length (4C) 6.3 cm LV Stroke Volume (4C MOD) 93 ml RV Dimensions 2D/MM TAPSE 2.5 cm >=1.7 Atria Name Value Normal LA Dimensions LA Dimension (2D) 3.5 cm 3.0-4.1 LA Dimen Index (2D) 1.4 cm/m2 LA Area (4C) 18 cm2 LA Length (4C) 5.3 cm LA Area (2C) 22 cm2 LA Length (2C) 5.8 cm LA Volume (4C MOD) 45 ml LA Volume (2C MOD) 65 ml LA Volume (4C A-L) 51 ml LA Volume (2C A-L) 68 ml LA Volume (BP A-L) 62 ml LA Volume Index (BP A-L) 25 ml/m2 16-34 LA Volume (BP MOD) 57 ml LA Volume Index (BP MOD) 23 ml/m2 16-34 Report Signatures Finalized by Julian Talavera on 08/02/2025 04:49 PM Procedure Note Julian Talavera MD - 08/02/2025 Summary * The left ventricle is normal in size with hyperdynamic systolicfunction and an estimated ejection fraction of 70-75% by visual estimate. Left ventricular wall motion is normal. * The left ventricular diastolic function is normal. * Right ventricle is mildly dilated with normal systolic function. * The pulmonary artery systolic pressure is normal, 27 mmHg. Patient Info Name: Colleen Kumar Age: 69 years : 1955 Gender: Male Ht: 72 in Wt: 250 lb BSA: 2.44 m2 BP: 142 / 82 mmHg Exam Date: 08/02/2025 11:06 AM Patient Status: I/P Study Site: [facility] Primary Location: [facility] EStudy Info Technical Quality: Adequate Exam Type: ECHO COMPLETE W CONTRAST Indications I26.99 - Bilateral pulmonary embolism (HCC) Procedure(s) * A complete 2D, color Doppler, spectral Doppler, and M-Modetransthoracic echocardiogram was performed. * An Ultrasound Enhancing Agent (UEA) was utilized to enhanceendocardial definition, opacify the left ventricle and further assess leftventricular function and wall motion. Staff Referring Physician: Hussain Freitas Ordering Provider: Hussain Freitas Attending Physician: Hussain Freitas Assignment Officer: Wilton Milian Left Ventricle The left ventricle is normal in size. Left ventricular systolic functionis hyperdynamic with an estimated ejection fraction of 70-75% by visualestimate. The left ventricular mass is normal. Left ventricular segmental wallmotion is normal. The left ventricular diastolic function is normal. There ismildly increased left ventricular wall thickness. Right Ventricle The right ventricle is mildly dilated. Right ventricular systolicfunction is normal. Left Atrium The left atrium is normal in size with a left atrial volume index of23 ml/m2 by BP MOD. Right Atrium The right atrium is normal in size. Atrial Septum Intact interatrial septum visualized by 2D and color Doppler imaging. Aortic Valve The aortic valve is trileaflet. There is no aortic valve stenosis. Thereis no aortic valve regurgitation. Pulmonic Valve The pulmonic valve is normal. There is no pulmonic valve stenosis. Thereis no pulmonic regurgitation. Mitral Valve The mitral valve is normal. There is no mitral valve stenosis. There isno mitral valve regurgitation. Tricuspid Valve The tricuspid valve is normal. There is trace tricuspid valveregurgitation. The pulmonary artery systolic pressure is normal, 27 mmHg. Inferior Vena Cava The inferior vena cava is normal in size (< 2.1 cm). There is > 50%collapse of the IVC upon inspiration with an estimated right atrial pressure of 3mmHg. Pericardium/Pleural There is no pericardial effusion. Aorta The aortic root at the sinus of Valsalva is normal in size. Theascending aorta is normal in size. Measurements Left Ventricular Outflow Tract Name Value Normal LVOT 2D LVOT Diameter 2.1 cm LVOT Area 3.4 cm2 LVOT Doppler LVOT Peak Velocity 0.9 m/s LVOT Peak Gradient 3 mmHg LVOT Mean Velocity 61.65 cm/s LVOT Mean Gradient 2 mmHg LVOT VTI 17.6 cm LVOT VTI/AV VTI Ratio 0.8 LVOT Stroke Volume 60 ml LVOT Stroke Volume Index 25 ml/m2 35-58 Pulmonic Valve Name Value Normal PV Doppler PV Peak Velocity 1.0 m/s PV Peak Gradient 3 mmHg PV Accel Time 105.61 ms Mitral Valve Name Value Normal MV Diastolic Function MV E Peak Velocity 0.6 m/sec MV A Peak Velocity 0.6 m/sec MV E/A 1.0 MV Decel Time (PW) 260 ms MV Annular TDI MV Septal e' Velocity 5 cm/s >=8 MV E/e' (Septal) 12 <=8 MV Lateral e' Velocity 7 cm/s >=10 MV E/e' (Lateral) 9 <=8 MV e' Average 6 cm/s MV E/e' (Average) 10 Tricuspid Valve Name Value Normal TV Regurgitation Doppler TR Peak Velocity 2.4 m/s TR Peak Gradient 24 mmHg Estimated PAP/RSVP RA Pressure 3 mmHg <=5 PA Systolic Pressure 27 mmHg <35 RV Systolic Pressure 27 mmHg <36 TV Annular TDI TV Lateral Serenity s' Velocity 18 cm/s 10-19 Aorta Name Value Normal Ascending Aorta Ao Root Diameter (2D) 4.0 cm Ao Root Diam Index (2D) 1.6 cm/m2 Aortic Valve Name Value Normal AV Doppler AV Peak Velocity 1.03 m/s AV Peak Gradient 3 mmHg AV Mean Gradient 2 mmHg AV VTI 22 cm AV Area (Cont Eq VTI) 2.69 cm2 >=2.00 AV Area (Cont Eq Parvez) 3.01 cm2 AV DI (VTI) 0.78 AV DI (Parvez) 0.87 AV Regurgitation 2D LVOT Area 3.44 cm2 Ventricles Name Value Normal LV Dimensions 2D/MM IVS Diastolic Thickness (2D) 1.1 cm 0.6-1.0 LVID Diastole (2D) 4.2 cm 4.2-5.8 LVPW Diastolic Thickness (2D) 1.1 cm 0.6-1.0 LVID Systole (2D) 2.9 cm 2.5-4.0 LV Mass (2D Cubed) 160 g 88-224 LV Mass Index (2D Cubed) 66 g/m2 49-115 Relative Wall Thickness (2D) 0.53 <=0.42 LV Fractional Shortening/Ejection Fraction 2D/MM LV Fractional Shortening (2D) 32 % 25-43 LV EF (2D Teicholz) 60 % 52-72 LV Diastolic Volume (4C MOD) 123 ml LV EF (4C MOD) 76 % LV Diastolic Volume (2C MOD) 100 ml LV EF (2C MOD) 75 % LV Diastolic Volume (BP MOD) 114 ml 62-150 LV Diastolic Volume Index (BP MOD) 47 ml/m2 34-74 LV Systolic Volume (BP MOD) 28 ml 21-61 LV Systolic Volume Index (BP MOD) 11 ml/m2 11-31 LV EF (BP MOD) 76 % 52-72 LV Diastolic Length (4C) 9.7 cm LV Systolic Length (4C) 6.3 cm LV Stroke Volume (4C MOD) 93 ml RV Dimensions 2D/MM TAPSE 2.5 cm >=1.7 Atria Name Value Normal LA Dimensions LA Dimension (2D) 3.5 cm 3.0-4.1 LA Dimen Index (2D) 1.4 cm/m2 LA Area (4C) 18 cm2 LA Length (4C) 5.3 cm LA Area (2C) 22 cm2 LA Length (2C) 5.8 cm LA Volume (4C MOD) 45 ml LA Volume (2C MOD) 65 ml LA Volume (4C A-L) 51 ml LA Volume (2C A-L) 68 ml LA Volume (BP A-L) 62 ml LA Volume Index (BP A-L) 25 ml/m2 16 LA Volume (BP MOD) 57 ml LA Volume Index (BP MOD) 23 ml/m2 16-34 Report Signatures Finalized by Julian Talavera on 08/02/2025 04:49 PM us Hussain Freitas MD ECHO CUPID Final Res ult * (ABNORMAL) TROPONIN-I HIGH SENSITIVE REFLEX 1HOUR (08/02/2025 6:35 AM CDT) Pathologist [facility] Troponin I High Sensitive 461(HH) <=35 ng/L 08/02/2025 7:20 AM CDT [facility] Delta Troponin I HS 08/02/2025 7:20 AM CDT [facility] Comment:Delta value intentio matthew not calculated. Baseline to 1 hour specimen collection interval exceeded. Blood BLOOD SPECIMEN / Unknown Lab Venipuncture / Unknown 08/02/2025 6:35 AM CDT 08/02/2025 6:52 AM CDT us Hussain Freitas MD LAB - CHEMISTRY ORDERABLE S Final Result [facility] [address] [place] [address] * (ABNORMAL) TROPONIN-I HIGH SENSITIVE BASELINE + 1HR (08/02/2025 4:36 AM CDT) Pathologist [facility] Troponin I High Sensitive 393(HH) <=35 ng/L 08/02/2025 6:17 AM CDT [facility] Blood BLOOD SPECIMEN / Unknown Lab Venipuncture / Unknown 08/02/2025 4:36 AM CDT 08/02/2025 4:56 AM CDT Hussain Freitas MD LAB - CHEMISTRY ORDERABLE S Final Result Performing Organization Address [facility] de Phone Number [facility] [address] [place] [phone] * PT-INR (08/02/2025 4:36 AM CDT) Only the most recent of2 resultswithin the time period is included. Pathologist [facility] PT 13.4 12.1 - 14.8 sec 08/02/2025 5:16 AM CDT [facility] INR 1.0 0.9 - 1.1 08/02/2025 5:16 AM CDT [facility] Blood BLOOD SPECIMEN / Unknown Lab Venipuncture / Unknown 08/02/2025 4:36 AM CDT 08/02/2025 4:56 AM CDT Narrative [facility] - 08/02/2025 5:16 AM CDT Conventional Warfarin Anticoagulant Therapy: INR Reference Range: 2.0-3.0 Intensive Warfarin Anticoagulant Therapy: INR Reference Range: 2.5-3.5 Hussain Freitas MD LAB - COAGULATION ORDERAB LES Final Result Performing Organization Address [facility] de Phone Number [facility] [address] [place] [phone] * (ABNORMAL) CBC W AUTO DIFFERENTIAL (08/02/2025 4:36 AM CDT) Only the most recent of2 resultswithin the time period is included. WBC 9.2 4.0 - 10.7 x10E9/L 08/02/2025 5:22 AM CDT [facility] RBC Count 4.82 4.30 - 5.80 x10E12/L 08/02/2025 5:22 AM CDT [facility] Hemoglobin 14.5 13.3 - 17.5 g/dL 08/02/2025 5:22 AM CDT [facility] Hematocrit 44.3 38.7 - 51.1 % 08/02/2025 5:22 AM CDT [facility] MCV 91.9 80.0 - 98.0 fL 08/02/2025 5:22 AM CDT [facility] MCH 30.1 26.7 - 33.6 pg 08/02/2025 5:22 AM CDT [facility] MCHC 32.7 31.7 - 36.3 g/dL 08/02/2025 5:22 AM CDT [facility] RDW-CV 12.9 11.3 - 14.8 % 08/02/2025 5:22 AM CDT [facility] Platelet Count 246 150 - 420 x10E9/L 08/02/2025 5:22 AM CDT [facility] MPV 10.1 7.8 - 11.4 fL 08/02/2025 5:22 AM CDT [facility] Neutrophil % 55.6 41.0 - 74.0 % 08/02/2025 5:22 AM CDT [facility] Lymphocyte % 29.9 17.0 - 47.0 % 08/02/2025 5:22 AM CDT [facility] Monocyte % 12.0(H) 3.0 - 11.0 % 08/02/2025 5:22 AM CDT [facility] Eosinophil % 1.7 0.0 - 7.0 % 08/02/2025 5:22 AM CDT [facility] Basophil % 0.4 0.0 - 1.6 % 08/02/2025 5:22 AM CDT [facility] Immature Granulocytes % 0.4 0.0 - 1.0 % 08/02/2025 5:22 AM CDT [facility] Neutrophil Absolute 5.10 1.60 - 7.50 x10E9/L 08/02/2025 5:22 AM CDT [facility] Lymphocyte Absolute 2.75 1.00 - 4.40 x10E9/L 08/02/2025 5:22 AM CDT [facility] Monocyte Absolute 1.10(H) 0.15 - 1.00 x10E9/L 08/02/2025 5:22 AM CDT [facility] Eosinophil Absolute 0.16 0.00 - 0.60 x10E9/L 08/02/2025 5:22 AM CDT [facility] Basophil Absolute 0.04 0.00 - 0.13 x10E9/L 08/02/2025 5:22 AM [facility] Blood BLOOD SPECIMEN / Unknown Lab Venipuncture / Unknown 08/02/2025 4:36 AM CDT 08/02/2025 4:56 AM CDT us Hussain Freitas MD LAB - HEMATOLOGY ORDERABL ES Final Result [facility] [address], [place] [id number] * (ABNORMAL) BASIC METABOLIC PANEL (CALCIUM TOTAL) (08/02/2025 4:36 AM CDT) Glucose 90 70 - 99 mg/dL 08/02/2025 6:08 AM [facility] Sodium 136 136 - 145 mmol/L 08/02/2025 6:08 AM [facility] Potassium 4.1 3.5 - 5.1 mmol/L 08/02/2025 6:08 AM [facility] Chloride 106 98 - 107 mmol/L 08/02/2025 6:08 AM [facility] CO2 20(L) 22 - 29 mmol/L 08/02/2025 6:08 AM [facility] Calcium 9.3 8.4 - 10.4 mg/dL 08/02/2025 6:08 AM [facility] Anion Gap 10 6 - 16 mmol/L 08/02/2025 6:08 AM [facility] BUN 19 7 - 26 mg/dL 08/02/2025 6:08 AM [facility] Creatinine 1.17 0.70 - 1.30 mg/dL 08/02/2025 6:08 AM [facility] eGFR by CKD-EPI 68(L) >=90 mL/min/1.7 3 m2 08/02/2025 6:08 AM [facility] Comment:Estimated Glomerular Filtration Rate (eGFR) calculated using the CKD-EPI Creatinine Equation (2020), per the National Kid[employer] Foundation and [place] [employer] recommendations. Blood BLOOD SPECIMEN / Unknown Lab Venipuncture / Unknown 08/02/2025 4:36 AM CDT 08/02/2025 4:56 AM CDT us Hussain Freitas MD LAB - CHEMISTRY ORDERABLE S Final Result Performing Organization Address [facility]/ZIP Co de Phone Number [facility] [address] [place] [phone] * MAGNESIUM BLOOD (08/02/2025 4:36 AM CDT) Magnesium 2.0 1.6 - 2.6 mg/dL 08/02/2025 6:08 AM CDT [facility] Blood BLOOD SPECIMEN / Unknown Lab Venipuncture / Unknown 08/02/2025 4:36 AM CDT 08/02/2025 4:56 AM CDT Hussain Freitas MD LAB - CHEMISTRY ORDERABLE S Final Result Performing Organization Address [facility] de Phone Number [facility] [address] [place] [phone] * IR Translum Thrombectomy Arterial (08/02/2025 12:51 AM CDT) Anatomical Region Laterality Modality Abdomen X-Ray Angiograph y 08/06/2025 5:59 PM CDT Impressions 08/06/2025 6:05 PM CDT Impression: Bilateral pulmonary artery thrombectomy, as detailed above. Follow-up: Strict bed rest with right leg straight and immobilized x 2 hours. Continue therapeutic anticoagulation per primary team recommendations. I, Dr. Javan Angeles, performed/supervised the entire procedure. > Interpreting Provider: Javan Angeles MD on 08/06/2025 6:05 PM Narrative 08/06/2025 6:05 PM CDT PROCEDURE: IR TRANSLUM THROMBECTOMY ARTERIAL DATE/TIME OF EXAM: 08/02/2025 12:56 AM CLINICAL INFORMATION: None relevant/not provided if blank. Indication: I26.99: Acute pulmonary embolism, unspecified pulmonary embolism type, unspecified whether acute cor pulmonale present (HCC) I26.99: Bilateral pulmonary embolism (HCC) History: 69-year-old male transferred from outside hospital with findings of bilateral pulmonary emboli and right heart strain associated with shortness of breath and intermittent chest discomfort. Following benefit: Risk profile discussion with patient, consensus agreement to pursue attempted suction thrombectomy. Operators: 1.Attending - Dr. Javan Angeles 2.Resident - Dr. Cm Mota Anesthesia: 1.Local anesthesia - 10 ml of 1% lidocaine 2.Intravenous analgesia-Benadryl: 50 mg and Fentanyl 175 mcg Procedure: 1.Ultrasound-guided access of the right common femoral vein. 2. Fluoroscopically guided placement of a 24 Luxembourger sheath in the right common femoral vein. 3.Selective catheterization of the main pulmonary artery and angiogram. 4. Main pulmonary artery pressure measurement. 5.Fluoroscopy-guided placement of a 24 [place]bourger INARI thrombectomy catheter in the right ascending pulmonary artery and aspiration thrombectomy. 6. Fluoroscopy-guided placement of a 24 [place] INARI thrombectomy catheter in the left descending pulmonary artery and aspiration thrombectomy. 8. Post-thrombectomy main pulmonary artery pressure measurement. 9. Right common femoral vein hemostasis with Perclose device x2. Fluoroscopic time: 14.0 minutes Contrast: 100 mL of Isovue-370 Procedure details: The procedure, risks, and possible complications were explained to the patient in detail and informed consent was obtained. The patient was placed supine on the angiography table. The right groin was prepped and draped in the usual sterile manner. [employer]ke [employer]r [employer] radiograph of the chest demonstrated no acute findings. Pre-procedure time out was peformed. Limited ultrasound of the right groin demonstrated a patent and compressible common femoral vein. A anna scale image was documented. 1% lidocaine was given for local anesthesia. Under real time ultrasound guidance, using a micropuncture needle, the right common femoral vein was accessed. The needle entry was documented. Following a series of exchanges, a 0.035 wire was advanced into the inferior vena cava under fluoroscopic guidance.Perclose x2 were deployed in preparation. The tract was then dilated to 24 Luxembourger. A 24 Luxembourger sheath was advanced into the inferior vena cava. A 6 Luxembourger angled pigtail catheter was advanced through the sheath into the main pulmonary artery. Main pulmonary artery angiogram demonstrated bilateral filling defects in the pulmonary arteries, most prominent in the right upper segmental branches and left lower segmental branches. Main pulmonary artery pressure was obtained, measuring 42/11 (mean of 21). Over an exchange length stiff Amplatz wire, a 24 Luxembourger INARI thrombectomy catheter was advanced into the right upper segmental pulmonary artery. Mechanical thrombectomy was then performed aspirating large clot 2 times. Postthrombectomy images shows satisfactory congregation of flow and resolution of a great majority of the filling defects. Over an exchange length stiff Amplatz wire, a 24 [place]ger INARI thrombectomy catheter was advanced into the left lower segmental pulmonary artery. Mechanical thrombectomy was then performed aspirating large clot 2 times. Postthrombectomy images shows satisfactory congregation of flow and resolution of the great majority of the filling defects. Completion main pulmonary arteriogram shows much increased flow into both pulmonary arteries with resolution of filling defects. Post-intervention main pulmonary artery pressure was obtained, measuring 29/17 (mean of 22). All catheters and wires were removed. The sheath was then removed, and hemostasis in the right groin was achieved with Perclose x2. Sterile dressing was applied. Upon conclusion of the procedure, review of images confirmed no evidence of unintentionally retained devices. The patient tolerated the procedure well and was transferred to the floor in stable condition. There were no immediate complications associated with the procedure. Procedure Note Javan Angeles MD - 08/06/2025 PROCEDURE: IR TRANSLUM THROMBECTOMY ARTERIAL DATE/TIME OF EXAM: 08/02/2025 12:56 AM CLINICAL INFORMATION: None relevant/not provided if blank. Indication: I26.99: Acute pulmonary embolism, unspecified pulmonary embolism type, unspecified whether acute cor pulmonale present (HCC) I26.99: Bilateral pulmonary embolism (HCC) History: 69-year-old male transferred from outside hospital withfindings of bilateral pulmonary emboli and right heart strain associated with shortness of breath and intermittent chest discomfort. Followingbenefit: Risk profile discussion with patient, consensus agreement to pursue attempted suction thrombectomy. Operators: 1.Attending - Dr. Javan Angeles 2.Resident - Dr. Cm Mota Anesthesia: 1.Local anesthesia - 10 ml of 1% lidocaine 2.Intravenous analgesia-Benadryl: 50 mg and Fentanyl 175 mcg Procedure: 1.Ultrasound-guided access of the right common femoral vein. 2. Fluoroscopically guided placement of a 24 Luxembourger sheath in theright common femoral vein. 3.Selective catheterization of the main pulmonary artery and angiogram. 4. Main pulmonary artery pressure measurement. 5.Fluoroscopy-guided placement of a 24 Luxembourger INARI thrombectomycatheter in the right ascending pulmonary artery and aspiration thrombectomy. 6. Fluoroscopy-guided placement of a 24 Luxembour[place] INARI thrombectomy catheter in the left descending pulmonary artery and aspiration thrombectomy. 8. Post-thrombectomy main pulmonary artery pressure measurement. 9. Right common femoral vein hemostasis with Perclose device x2. Fluoroscopic time: 14.0 minutes Contrast: 100mL of Isovue-370 Procedure details: The procedure, risks, and possible complications were explained to the patient in detail and informed consent was obtained. The patient wasplaced supine on the angiography table. The right groin was prepped and drapedin the usual sterile manner. Brake Repairer Air radiograph of the chest demonstrated no acute findings. Pre-procedure time out was peformed. Limited ultrasound of the right groin demonstrated a patent and compressible common femoral vein. A anna scale image was documented. 1% lidocaine was given for local anesthesia. Under real time ultrasound guidance, using a micropuncture needle, the right common femoral veinwas accessed. The needle entry was documented. Following a series ofexchanges, a 0.035 wire was advanced into the inferior vena cava under fluoroscopic guidance.Perclose x2 were deployed in preparation. The tract was then dilated to 24 Luxembourger. A 24 Luxembourger sheath was advanced into the inferior vena cava. A 6 Luxembourger angled pigtail catheter was advanced through the sheath into the main pulmonary artery. Mainpulmonary artery angiogram demonstrated bilateral filling defects in the pulmonary arteries, most prominent in the right upper segmental branches and left lower segmental branches. Main pulmonary artery pressure was obtained, measuring 42/11 (mean of 21). Over an exchange length stiff Amplatz wire, a 24 Luxembourger INARIthrombectomy catheter was advanced into the right upper segmental pulmonary artery. Mechanical thrombectomy was then performed aspirating large clot 2times. Postthrombectomy images shows satisfactory congregation of flow and resolution of a great majority of the filling defects. Over an exchange length stiff Amplatz wire, a 24 Luxembourger INARIthrombectomy catheter was advanced into the left lower segmental pulmonary artery. Mechanical thrombectomy was then performed aspirating large clot 2times. Postthrombectomy images shows satisfactory congregation of flow and resolution of the great majority of the filling defects. Completion main pulmonary arteriogram shows much increased flow intoboth pulmonary arteries with resolution of filling defects. Post-intervention main pulmonary artery pressure was obtained, measuring 29/17 (mean of 22). All catheters and wires were removed. The sheath was then removed, and hemostasis in the right groin was achieved with Perclose x2. Sterile dressing was applied. Upon conclusion of the procedure, review of images confirmed no evidence of unintentionally retained devices. The patient tolerated the procedure well and was transferred to the floor in stable condition. There were no immediate complications associated with the procedure. Impression: Bilateral pulmonary artery thrombectomy, as detailed above. Follow-up: Strict bed rest with right leg straight and immobilized x 2 hours. Continue therapeutic anticoagulation per primary team recommendations. I, Dr. Javan Angeles, performed/supervised the entire procedure. > Interpreting Provider: Javan Angeles MD on 08/06/2025 6:05 PM us Javan Angeles MD IR ORDERABLES Final Result * TROPONIN-I HIGH SENSITIVE (08/01/2025 8:36 PM CDT) Pathologist [facility] Troponin I High Sensitive 4 <=35 ng/L 08/01/2025 9:54 PM CDT [facility] Blood BLOOD SPECIMEN / Unknown Lab Venipuncture / Unknown 08/01/2025 8:36 PM CDT 08/01/2025 9:24 PM CDT us Hussain Freitas MD LAB - CHEMISTRY ORDERABLE S Final Result [facility] [address] [place] [address] * NT-PRO BNP (08/01/2025 8:36 PM CDT) NT-proBNP 51.0 <900.0 pg/mL 08/01/2025 9:50 PM CDT [facility] Blood BLOOD SPECIMEN / Unknown Lab Venipuncture / Unknown 08/01/2025 8:36 PM CDT 08/01/2025 9:24 PM CDT Narrative [facility] - 08/01/2025 9:50 PM CDT NT-pro-BNP values below 300 pg/mL, for individuals 18 or above, have a 99% negative predictive value for excluding acute congestive heart failure (CHF). In patients with eGFR less than 60 mL/min/1.73 m2, caution should be used when interpreting NT-pro-BNP results. Results should be assessed in conjunction with the patient s medical history, clinical examination, and other findings. NT-pro-BNP is measured on the [employer] Alinity analyzer using chemiluminescent microparticle immunoassay (CMIA) technology. us Hussain Freitas MD LAB - CHEMISTRY ORDERABLE S Final Result [facility] [address] [place] [id number] * ENDOSCOPY, COLON, SCREENING (06/15/2022 10:03 AM [...] bowel preparation was evaluated using the BBPS ([place] Bowel Preparation Scale) with scores of: Right [...] non-chisholm portions. Procedure Code(s): --- Professional --- 18312, Colonoscopy, flexible; with removal of tumor(s), polyp(s), or other lesion(s) by snare technique Diagnosis Code(s): --- Professional --- Z12.11, Encounter for screening for malignant neoplasm of colon K63.5, Polyp of colon CPT copyright 2019 [employer]. All rights reserved. The codes documented in this report are preliminary and upon icd 9 coder review may be revised to meet current compliance requirements. Dylon Fox, 06/15/2022 10:45:19 AM Note Initiated On: 06/15/2022 10:03 AM Number of Addenda: [phone] [place] [address] PROVATION 06/15/2022 10:0 3 AM CDT Dylon Fox MD GI PROCEDURE ORDERABLES Edited R esult - Final [facility] PROVATION from Last 3 Months or Most Recently Relevant to Health Maintenance Insurance MANAGED MEDICARE ADV [facility] MANAGED MEDICARE ADV SELF PAY NO INSURANCE Member Subscriber Plan / Payer (Ef fective for All Dates) Name:Colleen Kumar Member ID:Not on file Relation to Subscriber:Not on file Name:COLLEEN KUMAR Subscriber ID:Not on file (Home) Address: [address] [place], [place] [id number] Payer ID:Not on file Group ID:Not on file Type:Self Pay Address: [place], [place] Advance Directives * Full Code (Latest Code Status on File) Date Activated Date Inactivated Comments 08/01/2025 8:58 PM 08/03/2025 2:53 PM Care Teams Recreation Facility Attendant Relationship Specialty Start Date End Date Zoe Gaona, [employer] [address] [phone] PCP - General Nurse Practitioner 08/01/25 Julian Rawls MD 11/05/21
[2025-08-20 14:51] VITALS: BP 131/81; PULSE 72; RESP 16; TEMP 36.8; O2SAT 100
--- NOTE | 2025-08-20 15:33 | ED.URI ---
HPI - URI/Sore Throat General Chief Complaint: Upper Respiratory Infection Stated Complaint: cough Time Seen by Provider: 08/20/25 15:21 Source: patient, RN notes reviewed and old records reviewed Mode of arrival: ambulatory Limitations: no limitations History of Present Illness HPI Narrative: 69-year-old male patient presents today complaining of a 2 week history of nonproductive cough. Denies any additional symptoms to include shortness of breath, chest pain, congestion or rhinorrhea. He has tried some cough drops with mild short-term relief. Patient was hospitalized for bilateral pulmonary emboli for 2 weeks at [facility] in [place] after an arm surgery on 08/01/25 and was discharged 17 days ago. His cough started 3 days after discharge. He currently takes Eliquis for anticoagulation. He mentioned his cough his doctor who believes he has a respiratory virus. Related Data Home Medications ?Medication ?Instructions ?Recorded ?Confirmed ?Last Taken ?Type losartan 100 mg tablet 100 mg PO DAILY 05/24/25 Unknown History apixaban 5 mg tablet (Eliquis) 5 mg PO ONCE 08/20/25 08/20/25 Unknown History cetirizine 10 mg capsule (All Day 10 mg PO DAILY PRN allergy symptoms 08/20/25 08/20/25 Unknown History Allergy (cetirizine)) Allergies Allergy/AdvReac Type Severity Reaction Status Date / Time lisinopril AdvReac Intermediate Cough Verified 08/20/25 14:53 NSAIDS (Non-Steroidal AdvReac Unknown Verified 08/20/25 14:53 Anti-Inflamma PMFSH Past Medical History Medical History CKD (chronic kidney disease) FABBY (obstructive sleep apnea) Hypertension Family History Family History Father Cancer Mother Skin cancer Ovarian cancer Social History Social History Social History: Caffeine-none Smoking status: Never smoker Alcohol intake: current Alcohol use details: occasionally Substance use: never Substance use type: does not use Living arrangements: with family Gender identity (if verbalized by the patient): Male Comments At time of signature, I have reviewed and agree with nursing past medical, surgical, social and family history unless otherwise noted. Please see nursing chart for further information. There is no relevant family history pertinent to the presenting complaint Exam Narrative: GENERAL: Well-appearing, well-nourished, and in no acute distress. HEAD: Normocephalic, atraumatic. EYES: EOMI. No redness or drainage. Conjunctivae normal. ENT: Mucous membranes pink and moist. NECK: Normal AROM. CHEST: No respiratory distress. Clear to auscultation. HEART: Regular rate and rhythm. No murmur appreciated. EXTREMITIES: Normal range of motion. No edema. SKIN: Warm, dry, no rash. Capillary refill normal. Normal skin turgor. NEURO: No focal deficits. Alert and oriented x3. Gait steady. PSYCH: Normal affect. No signs of depression or anxiety. Course Course Level of Care: Express Care Visit Vital Signs Vital signs: Vital Signs Temperature 98.3 F 08/20/25 14:51 Pulse Rate 72 08/20/25 14:51 Respiratory Rate 16 08/20/25 14:51 Blood Pressure 131/81 08/20/25 14:51 Pulse Oximetry 100 08/20/25 14:51 Oxygen Delivery Room Air 08/20/25 14:51 Temperature 98.3 F 08/20/25 14:51 Pulse Rate 72 08/20/25 14:51 Respiratory Rate 16 08/20/25 14:51 Blood Pressure 131/81 08/20/25 14:51 Pulse Oximetry 100 08/20/25 14:51 Oxygen Delivery Room Air 08/20/25 14:51 Reviewed MDM - URI/Sore Throat MDM Narrative Medical decision making narrative: 69-year-old male presents with a 2 week history of cough that started 3 days after being discharged from the hospital for bilateral pulmonary emboli. Denies any additional symptoms to include chest pain, shortness of breath, upper respiratory symptoms. Cough drops provide some short-term improvement. Exam is normal except for occasional dry cough. Patient is anticoagulated with Eliquis. Chest xray negative. Symptoms likely residual from viral illness. Will prescribe a short burst of prednisone to help with symptoms. Patient declines cough medicine. Agrees with plan. Vital signs stable. Anticipatory guidance given. ED precautions given. Differential Diagnosis Differential diagnosis: Likely bronchitis and other (Pneumonia) Imaging Data Radiologist's impression: ITS Impressions Chest X-Ray 08/20/25 15:38 Impression: No acute cardiopulmonary abnormality. Critical Care Time Critical Care Time Critical Care Time: No Discharge Plan Discharge Clinical Impression: Bronchitis Patient Disposition: Home Condition: Stable Instructions: Acute Bronchitis (ED) Additional Instructions: Your x-ray is negative. Please take the prednisone as directed. As discussed, if you develop any worsening symptoms such as chest pain, shortness of breath, new fever greater than 100.3, please go to the ER immediately for further evaluation and treatment. Patient Language: Albanian Prescriptions: New prednisone 20 mg tablet 40 mg PO DAILY 5 Days Qty: 10 0RF No Action Eliquis 5 mg tablet 5 mg PO ONCE All Day Allergy (cetirizine) 10 mg capsule 10 mg PO DAILY PRN (Reason: allergy symptoms) losartan 100 mg tablet 100 mg PO DAILY Follow-up/Referrals: UNKNOWN,DOCTOR [Primary Care Provider] Time of Disposition: 15:47
== END 2025-08-20 15:50 | disposition home or self-care (01) ==
PROVIDERS: Emergency Provider Nurse Practitioner
DX: J40 Bronchitis, not specified as acute or chronic (principal); I12.9 Hypertensive chronic kidney disease with stage 1 through stage 4 chronic kidney disease, or unspecified chronic kidney disease; N18.9 Chronic kidney disease, unspecified; Z79.01 Long term (current) use of anticoagulants; Z86.711 Personal history of pulmonary embolism
CPT/HCPCS: 71046; 99213; G0463